=== PATIENT | male | born 1960 | race Caucasian/White ===

== ENCOUNTER → 2018-12-05 | Outpatient (CLI) | payer OTHER, SELFPAY ==
[2018-12-05 11:16] LABS: Anion Gap 5 (5-15); BUN 13 mg/dL (7-18); BUN/Creat Ratio 13.7 RATIO (10-20); Calcium,Total 8.9 mg/dL (8.5-10.1); Chloride 106 mmol/L (98-107); Creatinine, Serum 0.95 mg/dL (0.70-1.30); EST Glomerular Filtration Rate 87 mL/min (>60); Est Glom Filt Rate - Afr Amer 105 mL/min (>60); Glucose 101 mg/dL (74-106); Potassium 4.1 mmol/L (3.5-5.1); Sodium Level 138 mmol/L (136-145)
--- NOTE | 2018-12-05 13:18 | MRI_ITS ---
STUDY: MRI LEFT MIDFOOT REASON FOR EXAM: Male, 58 years old. Lump x10 years. TECHNIQUE: Standardized fat and water weighted pulse sequences were obtained in all 3 orthogonal planes. COMPARISON: None. FINDINGS: There is a 2.5 x 2.0 x 1.0 cm lobular enhancing intermediate T1 and diminished T2 signal mass of the skin on the plantar aspect. There is mild tibiotalar arthrosis with spurring and subchondral edema of the talar dome. There is os trigonum. Normal talonavicular articulation. Normal calcaneocuboid articulation. There is focal marrow edema of the cuboid, series 11 images 14 and 15. Normal navicular-cuneiform articulations. Normal intercuneiform articulations. Normal first tarsometatarsal articulation. Normal Lisfranc ligament. Normal second and third tarsometatarsal articulations. Normal cuboid fourth and cuboid fifth tarsometatarsal articulation. Normal visualized base of the first through fifth metatarsi. Normal tibialis anterior tendon. Normal extensor hallucis longus tendon. Normal extensor digitorum longus tendons. There is tendinosis of the peroneal brevis with flattening and longitudinal split tear, series 7 images 7 and 8. Normal intrinsic muscles of the mid foot region. Normal extensor digitorum brevis muscle. MRI/Lower Ext No Joint W/WO Cont IMPRESSION: Solid enhancing mass involving the skin on the plantar aspect. Tenosynovitis and partial split tear of the peroneal brevis. Bone bruise or stress injury of the cuboid. Electronically Signed: Stephen Kim MD at 16:25 EDT , Service support ,
== END | disposition home or self-care (01) ==
LOC: MRI 13:13
PROVIDERS: Referring Provider Podiatrist; Visit Provider Podiatrist
DX: Z01.818 Encounter for other preprocedural examination (principal); L98.9 Disorder of the skin and subcutaneous tissue, unspecified; M79.672 Pain in left foot; R22.42 Localized swelling, mass and lump, left lower limb
CPT/HCPCS: 73720; 80048; A9575

== ENCOUNTER → 2019-02-08 | Outpatient (CLI) | payer OTHER, SELFPAY ==
[2019-02-08 12:15] LABS: Absolute Lymphocyte Count 1.37 X10^3/ul (0.83-4.51); Absolute Neutrophil Count 2.7 X10^3/uL (2.0-7.7); Basophil# 0.01 X10^3/uL; Basophil% 0.2 % (0-1); Eosinophil# 0.26 X10^3/uL; Eosinophils% 5.4 % (0-5); Hematocrit 44.7 % (40-54); Hemoglobin 15.5 g/dl (13.0-16.5); Lymphocyte # 1.37 X10^3/ul (4.0); Lymphocyte % 28.5 % (19-41); Mean Corp Hgb Conc 34.7 g/gl (32-36); Mean Corpuscular Hgb 32.4 pg (27.0-32.0); Mean Corpuscular Volume 93.3 fL (80-94); Mean Platelet Vol. 9.4 fl (6.2-12.0); Monocyte# 0.48 X10^3/uL; Neutrophil # 2.67 X10^3/uL (2.7-7.7); Neutrophil % 55.5 % (47-70); Platelet Count 238 K/mm3 (150-450); RBC Distribution Width CV 12.4 % (11.6-14.6); Red Blood Count 4.79 M/mm3 (4.6-6.2); White Blood Count 4.8 K/mm3 (4.4-11.0)
[2019-02-08 12:26] LABS: AST(SGOT) 30 U/L (15-37); Alanine Aminotransfer ALT/SGPT 55 U/L (16-61); Albumin, Serum 3.8 g/dL (3.2-5.0); Alkaline Phosphatase 92 U/L (45-117); Anion Gap 7 (5-15); BUN 14 mg/dL (7-18); BUN/Creat Ratio 13.6 RATIO (10-20); Chloride 104 mmol/L (98-107); Creatinine, Serum 1.03 mg/dL (0.70-1.30); EST Glomerular Filtration Rate 79 mL/min (>60); Est Glom Filt Rate - Afr Amer 95 mL/min (>60); Globulin 3.8 g/dL (2.2-4.2); Glucose 96 mg/dL (74-106); Potassium 4.2 mmol/L (3.5-5.1); Protein, Total 7.6 g/dL (6.4-8.2); Sodium Level 138 mmol/L (136-145)
[2019-02-08 12:31] LABS: POSITIVE COUNT NO; POSITIVE DIFFERENTIAL NO; POSITIVE MORPHOLOGY NO
[2019-02-08 13:12] LABS: Erythrocyte Sedimentation Rate 4 mm/hr (0-20)
== END | disposition home or self-care (01) ==
LOC: BFHLAB 09:47
PROVIDERS: Family Provider Family Medicine; PCP Family Medicine; Visit Provider Family Medicine
DX: Z01.818 Encounter for other preprocedural examination (principal); I10 Essential (primary) hypertension
CPT/HCPCS: 36415; 80053; 85025; 85652

== ENCOUNTER 2019-02-16 06:01 | Day surgery (SDC) | payer OTHER, SELFPAY ==
[2019-02-16] VITALS (7 sets, daily range): BP systolic 128–176; BP diastolic 76–104; PULSE 65–75; RESP 16; TEMP 36.2–36.4; O2SAT 95–100; BMI 24.4
--- NOTE | 2019-02-16 | IMM_PTH ---
PATIENT: SHELBIE FERRO LOC: [facility] U#:[id number] AGE/SX: 58/M ROOM: RE02/16/[address]: Dr. Linh Butler DPM : 1960 BED: DIS: 02/16/2019 SPEC #: [id number] RECD: 02/19/19 11:10 STATUS: SCOTT REQ #: [id number] SHARLA: 02/16/19 00:[address]: Linh Butler DEPT: IMMUNOHISTOCHEMISTRY RECD BY: Hemalatha Alvarado ENTERED: 02/19/19 11:13 SP TYPE: IMMUNO OTHR DR: Dr. Norma Dominguez MD Tissues: Left foot Procedures: Synapto (add) RCC (add) SMA (add) NAPSIN A (add) CD45 (add) CD56 (add) CHROMO (add) CK20 (add) CK5-6 (add) CK7 (add) CK8 (add) DESMIN (add) HEP PAR (add) TTF1 (add) Vimentin (add) Pankeratin (initial) MELAN-A (add) P40 (add) PSAP (add) S-100 (add) PHYSICIAN & INSTITUTION [place] [id number] SPECIMEN INFORMATION: Tissue Source: Left foot soft tissue mass Clinical Info: Left foot soft tissue mass Specimen Number: [id number] CPT code: 85687, 05500 x19 METHODOLOGY: Deparaffinized sections of prefer/formalin-fixed tissue or PAP/DQ stained slides are incubated with monoclonal/polyclonal antibodies/oligonucleotide probes. Localization is made via biotin free immunoperoxidase method. Appropriate controls are performed and reacted as expected. Results on target cell population are indicated in the following table: RESULTS: ANTIBODY / CLONE RESULT AE1-3 (AE1/AE3/PCK26) positive CK7 (OV-TL12/30) positive CK8 (40hgsyU97) positive, focal CK20 (KS20.8) positive CD45 (RP2/18) negative Vimentin (V9) negative Actin (1A4) negative Desmin (CE-R-11) negative Melan A (A103) negative S-100 (4C4.9) negative CD56 (123C3.D5) negative Chromo (LK2H10) negative Synapto (polyclonal) negative TTF-1 (8G7G3/1) negative Napsin A (Rabbit Polyclonal) negative HepPar (OCh1E5) negative RCC (PN-15) negative PSAP (PASE/4LJ) negative CK5-6 (D5 & 1684) positive P40 (BC28) positive, weak These tests were developed and their performance characteristics determined by [facility]. They may not have been cleared or approved by the U.S. Food and Drug Administration. The FDA has determined that such clearance or approval is not necessary. 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 SJ:claire 03/15/19 This case is sent to [facility] for expert opinion and reviewed by Dr. Reilly and additionally also reviewed by Dr. Zaldivar from [facility] reference laboratory and above diagnosis is rendered. Complete report is viewable in patient's EMR. This case has been reviewed in consultation with Dr. Stewart who concurs with the above diagnosis.
--- NOTE | 2019-02-16 | MASS_PTH ---
PATIENT: SHELBIE FERRO [place] [facility] [place][id number] AGE/SX: 58/M ROOM: RE02/16/[address]: Dr. Linh Butler DPM : 1960 BED: DIS: 02/16/2019 SPEC #: [id number] RECD: 02/16/19 07:59 STATUS: SCOTT REQ #: [id number] SHARLA: 02/16/19 00:[address]: Linh Butler DEPT: SURGICAL PATHOLOGY RECD BY: Hemalatha Alvarado ENTERED: 02/16/19 09:35 SP TYPE: Mass OTHR DR: Dr. Norma Dominguez MD Tissues: Foot, NOS Procedures: Frozen Section (charge) Surgery Specimen Level IV HEADER OPERATION: Excision mass PRE-OP DIAGNOSIS: Soft tissue mass left foot; foot pain left foot TISSUE SUBMITTED: Left foot soft tissue mass, suture at 12 o'clock FROZEN SECTION DIAGNOSIS Left foot soft tissue mass: Infiltrative epithelial neoplasm. The findings may reflect a primary lesion vs metastasis. 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 See comment. SJ:claire 03/15/19 COMMENT Immunohistochemistry ([id number]) performed here and also at [facility] laboratory supports the above diagnosis. This case is sent to [facility] for expert opinion reviewed by Dr. Reilly and additionally also reviewed by Dr. Zaldivar from [facility] reference laboratory and above diagnosis is rendered. Complete report is viewable in PCI. This case is discussed with Dr. Butler on 02/20/19. Case has been reviewed in consultation with Dr. Stewart who concurs with the above diagnosis. IDC:AM MICROSCOPIC DESCRIPTION Slides are reviewed. GROSS DESCRIPTION Received fresh for frozen section labeled with the patient's name is a specimen designated left foot soft tissue mass. The specimen consists of a skin biopsy measuring 0.8 x 0.7 cm and biopsied to a depth of 1 cm. The skin surface is camara. A suture thread is present designating 12 o'clock. The 12 to 6 o'clock excisional margin is inked black and the 6 to 12 o'clock excisional margin is inked red. The specimen is bisected and one-half is submitted for frozen section. / CE:claire 02/16/19 TC:0 CPT: 21640, 05745
[2019-02-16] MEDS: Bupivacaine Mpf 0.5% 30 ML VIAL (07:48)
--- NOTE | 2019-02-16 08:42 | DCINST_ITS ---
Discharge Diet: No Restrictions Weight Bearing Status: Toe touch weight bearing Keep extremity elevated above heart level: Left Leg Call your doctor if your incision/area has: Continuous Slow Oozing, Sudden Increased Bleeding, Increased Pain/ Swelling, Increased Redness, Foul Smelling D ischarge, Swelling at the incision site Call your doctor if you observe: Fever of 101 or Higher, Calf discomfort, Uncontrolled pain Cleanse incision/area with: Keep Dressing Clean & Dry Allergies/Adverse Reactions: Allergies No Known Allergies Allergy (Verified 02/09/19 14:46) Medications to take at Discharge Loratadine [Claritin] 10 mg PO DAILY 02/09/19 Lisinopril [Zestril] 20 mg PO DAILY 02/12/19 Primary Care Physician: Norma Dominguez MD [Primary Care Provider] - Test Results: Test results from this visit will be discussed in further detail at your follow- up appointment, if applicable. Please Follow Up With: Linh Butler DPM When: 1 week [facility] - [phone] Proposed Discharge Date: 02/16/19
--- NOTE | 2019-02-16 08:43 | OP.PCM_ITS ---
Problem List (1) Soft tissue mass Status: Chronic (2) Neoplasm Status: Suspected Report of Operation Date of Procedure: 02/16/19 Pre-Operative Diagnosis: right foot soft tissue mass / skin lesion Post-Operative Diagnosis: right foot soft tissue mass / skin lesion. epithelial neoplasm (primary versus metatstatic lesion) right foot Surgery/Procedure Performed:: incisional biopsy right foot Description of Surgical Findings:: Hemostasis: Controlled, no tourniquet utilized Materials: None Findings: Pathology: fresh frozen sample evaluation included infiltrative epithelial neoplasm. Clinical / surgical: 2.7 x 2.2 x 0.8 cm solid lesion plantar left foot. Upon incisional biopsy, there is no purulence, necrosis, drainage. The base of the l esion appears to be approximately 2 cm in length. There is capillary formation in the plantar aspect with no distinct ulceration or crusting. Complications: None The patient tolerated the procedure and anesthesia well. He was transferred to the PACU with vital signs stable and vascular status intact to the left lower extremity. There is concern of primary neoplasm versus metastatic lesion. An oncology referral is recommended at this time in which additional surgical oncology referral may be implemented after further work-up. He will be discharged home upon continued stability. Postoperative orders were entered electronically. loan reviewer: none - Jewelry Finisher: Ludin Jiménez PGY2. Surgeon: Linh Butler DPM Type of Anesthesia:: Local MAC - Preoperative: 8 cc of 1: 1 mixture of 1% lidocaine plain and 0.5% Marcaine plain administered subdermal to lesion site of left foot Specimen's removed: Fresh frozen sample /incisional biopsy left foot Estimated Blood Loss (mL): 5mL Description of Procedure: Indications: This 58-year-old male with significant past medical history of hypertension, hypercholesteremia, and history of gout complains of a lesion to the bottom of his left foot with an onset of 2005. He denies any known trauma or other lesions. He denies drainage. He denies recent increase in size, history of rapid growth or rest pain at the lesion site. He does report pain to the foot while walking on this large lesion. He has tried to treat this is a wart at home with tape application and various acid wart remover medications. His girlfriend reports he had a biopsy performed at an outside facility however does not recall the location. Clinically, there is a 2.7 x 2.2 x 0.8 cm solid lesion plantar lateral left foot distal to the heel pad. The base of the lesion appears to be approximately 2 cm in length and this is firm to touch. There is capillary formation in the plantar aspect with no distinct ulceration or crusting. There is no distinct skin peeling. His neurovascular status is intact and he has nonpalpable popliteal lymph nodes. X-rays did not demonstrate tissue calcification in this area. MRI of the foot demonstrated a solid enhancing lobular skin lesion. The enhancement was noted in T1 and diminished in T2. On the MRI, there did not appear to be invasion into the deeper soft tissue muscle belly, joint, or bone. There is also no adjacent inflammatory reaction noted. Cuboid edema is noted. The preoperative indication, planned procedure, possible benefits, risks, comp occasions, anticipated healing time and were discussed in detail the patient. He understands elects to proceed with surgery at this time. The patient understands risks and complications include but not limited to the following: pain, swelling, scarring, need for further surgery, over under correction, further lesion or cancer work-up / referral pending fresh frozen results, allergic reaction, blood clot, loss of limb, function, life. No guarantees were made. Informed surgical consent and limb were signed. Answered all his questions. The preoperative clearance and history and physical including diagnostic data was reviewed in detail without gross abnormalities. Procedure in detail: The patient was transported to the operating room via cart and placed on the operating table in supine position. Final verification of patient, surgery, limb designation was performed via the timeout procedure. A well-padded pneumat ic left ankle tourniquet was placed however this was not utilized. Preoperative local anesthetic was administered by the podiatry team. MAC anesthesia was initially by the anesthesia team. The left lower extremity was prepped and draped in the usual aseptic manner. Attention was first directed to the plantar left foot and a 15 blade scalpel was used to incise approximately 5 mm diameter epidermal and dermal biopsy sample. This was sent for fresh frozen evaluation promptly. The case was discussed via phone with the pathologist in which an infiltrative epithelial neoplasm was suspected. This may be a primary lesion or a metastatic lesion. The case was stopped at this time and I decided not to proceed forward with the bilobed excisional flap closure. Adaptic, gauze, Kerlix and Abraham wrap were applied. Hemostasis was controlled with pressure and no additional electrocauterization was necessary. He will be referred to oncology for further imaging and work-up in which a surgical oncology referral may also be deemed necessary pending additional work-up. After procedure: The patient tolerated the procedure anesthesia well. He was transferred to the PACU vital signs stable and vascular status intact to the left foot. He will be discharged home upon continued stability. He is advised to keep this dressing clean, dry, and intact until follow-up in clinic next week. He was advised to ice and elevate for pain and inflammation management. He was already provided with a pain medication prescription for use only if needed only in the immediate postoperative setting. He was advised on safe and proper use. He was advised to place weight only on the forefoot and to keep pressure off of the recent biopsy site. Postoperative orders were entered electronically. This case was discussed in the postoperative setting with Dr. Calderón and an oncology referral was placed. Linh Butler DPM, [facility] - Complications none - Admit VTE Documentation VTE Present on Admission: No VTE Mechan Device Prophylaxis: SCD's VTE Pharm Prophylaxis ordered?: No Reason prophylaxis not ordered:: Treatment Not Indicated
== END 2019-02-16 09:19 | disposition home or self-care (01) ==
LOC: SDC 06:02 → AC 06:04
PROVIDERS: Family Provider Family Medicine; PCP Family Medicine; Referring Provider Podiatrist; Visit Provider Podiatrist
PROC: (CPT 11106; principal; 2019-02-16 07:15)
DX: D23.71 Other benign neoplasm of skin of right lower limb, including hip (principal); I10 Essential (primary) hypertension; J30.2 Other seasonal allergic rhinitis; Z87.891 Personal history of nicotine dependence; Z79.899 Other long term (current) drug therapy
CPT/HCPCS: 11106; 88305; 88307; 88331; 88341; 88342; J7120; J2405

== ENCOUNTER → 2019-03-02 | Outpatient (CLI) | payer OTHER, SELFPAY ==
[2019-02-21 15:47] VITALS: BMI 24.0
--- NOTE | 2019-03-02 13:52 | CT_ITS ---
STUDY: CT CHEST WITH CONTRAST REASON FOR EXAM: Male, 58 years old. Soft tissue mass on the left foot. RADIATION DOSAGE (If Supplied By Facility): CTDIvol = ( 10.97 ) mGy, DLP = ( 491.18 ) mGycm TECHNIQUE: Transaxial imaging was performed following intravenous administration of 100 IV Isovue 300. Multiplanar coronal and sagittal images were reformatted. Individualized dose optimization techniques were used for this CT. COMPARISON: CT of the abdomen and pelvis, March 02, 2019. FINDINGS: There is an azygos lobe. The lungs are well expanded and free of mass or infiltrate. There is no demonstrated pleural abnormality. Normal heart and pericardium. Normal mediastinum. Normal hilar regions. Normal enhanced pulmonary arteries. Normal aorta arch and descending thoracic aorta. Normal osseous structures. There is no demonstrated abnormality of the visualized upper abdomen. CT/Chest WITH Contrast IMPRESSION: Normal enhanced CT Chest examination. Electronically Signed: Aneudy Galarza DO at 21:24 EDT Tel [phone], Service support ,
--- NOTE | 2019-03-02 13:52 | CT_ITS ---
STUDY: CT ABDOMEN AND PELVIS WITH CONTRAST REASON FOR EXAM: Male, 58 years old. Soft tissue mass on the left foot. RADIATION DOSAGE (If Supplied By Facility): CTDIvol = ( 10.97 ) mGy, DLP = ( 491.18 ) mGycm TECHNIQUE: Transaxial images were obtained from the dome of the diaphragm to the symphysis pubis with oral contrast. 100 IV Isovue 300 was administered. Sagittal and coronal images were reconstructed. Individualized dose optimization techniques were used for this CT. COMPARISON: AP of the chest, March 02, 2018. FINDINGS: The visualized lung bases are unremarkable. The visualized portions of the heart are within normal limits. Normal liver. Normal gallbladder and extrahepatic biliary system. Normal spleen. Normal pancreas. Normal bilateral adrenal glands. Normal right kidney. Normal left kidney. Normal bilateral ureters. Normal visualized stomach. Normal small intestine. Normal colon. The appendix is visualized and appears normal. Minimal atherosclerotic changes of the abdominal aorta without aneurysm or dissection. Normal inferior vena cava. Normal retroperitoneum. There is mild circumferential wall thickening of the urinary bladder. There are no filling defects. The prostate is mildly enlarged and invaginates into the bladder floor. There are phleboliths in the pelvis without lymphadenopathy. No free air or free fluid is seen within the peritoneal cavity. There are small bilateral inguinal hernias of omental fat. The abdominal wall is otherwise unremarkable. Are degenerative changes of the lumbar spine CT/Abdomen/Pelvis WITH Contrast IMPRESSION: 1. Enlarged prostate. Question mild bladder outlet obstruction. 2. Atherosclerotic changes of the aorta. 3. Degenerative changes of the lumbar spine. Electronically Signed: Aneudy Galarza DO at 20:33 EDT Tel [phone], Service support ,
== END | disposition home or self-care (01) ==
LOC: CT 13:50
PROVIDERS: Family Provider Family Medicine; PCP Family Medicine; Referring Provider Internal Medicine Medical Oncology; Visit Provider Internal Medicine Medical Oncology
DX: M79.89 Other specified soft tissue disorders (principal)
CPT/HCPCS: 71260; 74177; Q9967

== ENCOUNTER 2019-04-13 23:49 | Emergency (ER) | payer OTHER, SELFPAY ==
[2019-03-20 15:20] VITALS: BMI 23.8
[2019-04-13 23:50] VITALS: BP 168/90; PULSE 94; RESP 16; TEMP 36.4; O2SAT 97; BMI 24.0
--- NOTE | 2019-04-14 00:09 | ED.DCSUM_ITS ---
History of Present Illness Chief Complaint: ETOH Intox Detail of Chief Complaint: EtOH intoxication, syncope Informant: Patient, Family Narrative: Patient presents via EMS. Patient reported he has been drinking a lot of alcohol tonight. He went unresponsive for approximately 1-1/2 minutes and EMS was called. Daughter states patient woke up shortly before EMS arrived. She thought that he had stopped breathing. Patient did have left foot surgery last week. He has not been taking pain medication. He has no complaints at this time, but keeps saying goodbye and just wants to go to sleep. Past Medical History - Allergies and Home Meds Allergies/Adverse Reactions: Allergies No Known Allergies Allergy (Verified 03/20/19 15:19) Primary Care Physician: Norma Dominguez MD [Primary Care Provider] - Prior records reviewed: Yes Past Medical History: - - Reviewed Lives: With Family Smoking Status: Never smoker Review of Systems General: Denies: Chills, Fever Cardiovascular: Denies: Chest pain Respiratory: Denies: Dyspnea Gastrointestinal: Denies: Abdominal pain, Nausea, Vomiting Musculoskeletal: Reports: Arthralgias - Foot pain status post surgery Skin: Reports: Wounds - Foot wound status post surgery Neurological: Denies: Headache Endocrine: Denies: Polyuria, Polydipsia Hematologic: Denies: Easy bruising Allergy: Denies: Uticaria Physical Exam Vital Signs/Narrative: Vital Signs Temp Pulse Resp BP Pulse Ox 04/13/19 23:50 97.5 F L 94 16 168/90 H 97 General: Well nourished Head: Normocephalic ENT: Moist mucous membranes Neck: Supple Cardiovascular: Regular rate, Regular rhythm Respiratory: No distress, CTA bilaterally Abdomen: Soft, Nontender, Normal bowel sounds Extremities: - - Dressing in place to left foot. No calf tenderness or edema. Neurological: Alert Psychological: - - Flat affect. Diagnostic/Tx/Re-eval Laboratory Results 04/14/19 04/14/19 04/14/19 00:40 00:40 00:40 WBC 6.7 RBC 4.79 Hgb 15.8 Hct 44.3 MCV 92.5 MCH 33.0 H MCHC 35.7 RDW Std Deviation 40.0 RDW Coeff of Lauren 11.8 Plt Count 233 MPV 8.8 Immature Gran % (Auto) 1.000 H Neut % (Auto) 55.3 Lymph % (Auto) 27.4 [place] % (Auto) 13.7 H Eos % (Auto) 2.2 Baso % (Auto) 0.4 Absolute Neuts (auto) 3.7 Absolute Lymphs (auto) 1.84 Nucleated RBC % 0 Sodium 140 Potassium 3.7 Chloride 105 Carbon Dioxide 27.0 Anion Gap 8 BUN 18 Creatinine 1.08 Estim Creat Clear Calc 72.13 Est GFR (MDRD) Af Amer 90 Est GFR (MDRD) Non-Af 75 BUN/Creatinine Ratio 16.7 Glucose 129 H Calcium 8.9 Total Bilirubin 0.60 Direct Bilirubin 0.15 AST 39 H ALT 56 Alkaline Phosphatase 117 Troponin I < 0.015 Total Protein 8.1 Albumin 3.9 Globulin 4.2 Ethyl Alcohol 431.0 H* - EKG Initial EKG Interpretation: Sinus Rhythm - Sinus at [address] change. - Medical Decision Making Patient was observed on equipment monitor phototypesetting. After 5 hours patient is awake and alert. He is ambulating in the emergency room. He does not remember details of what happened last evening, but he is very remorseful and tearful. He is states he is embarrassed and so sorry for any problems he may have caused. He has a sober ride that he can call to come pick him up. He was asked specifically if he is drinking tonight was any attempt to hurt himself and he denies this. ED Disposition - Plan for ED Patient: Disposition: Home or Assisted Living Diagnosis: Alcohol intoxication, Syncope Instructions: Alcohol Intoxication, SYNCOPE, Unk Cause Referrals: Norma Dominguez MD [Primary Care Provider] -
--- NOTE | 2019-04-14 00:19 | EKG12_ITS ---
Test Reason : Blood Pressure : / mmHG Vent. Rate : 086 BPM Atrial Rate : 086 BPM P-R Int : 136 ms QRS Dur : 090 ms QT Int : 374 ms P-R-T Axes : 081 062 065 degrees QTc Int : 447 ms Normal sinus rhythm Normal ECG Confirmed by CEZAR GOLDSTEIN, BRIAN ([id number]), purchasing expeditor JAYLENE VALDEZ ([id number]) on 04/16/2019 11:54:17 AM Referred By: SHASHANK Confirmed By:BRIAN ROBB MD
[2019-04-14] MEDS: 0.9% Normal Saline 1,000 ML 150 ML IV (00:36)
[2019-04-14 00:41] VITALS: BP 174/94; PULSE 113; RESP 24; TEMP 36.4; O2SAT 97
[2019-04-14 00:54] LABS: Absolute Lymphocyte Count 1.84 X10^3/uL (0.83-4.51); Absolute Neutrophil Count 3.7 X10^3/uL (2.0-7.7); Basophil# 0.03 X10^3/uL; Basophil% 0.4 % (0-1); Eosinophil# 0.15 X10^3/uL; Eosinophils% 2.2 % (0-5); Hematocrit 44.3 % (40-54); Hemoglobin 15.8 g/dL (13.0-16.5); Lymphocyte # 1.84 X10^3/ul (4.0); Lymphocyte % 27.4 % (19-41); Mean Corp Hgb Conc 35.7 g/dL (32-36); Mean Corpuscular Volume 92.5 fL (80-94); Mean Platelet Vol. 8.8 fl (6.2-12.0); Monocyte# 0.92 X10^3/uL; Monocyte% 13.7 % (0-10); NRBC Flagged by Analyzer 0 % (0-5); Neutrophil % 55.3 % (47-70); Platelet Count 233 K/mm3 (150-450); RBC Distribution Width CV 11.8 % (11.6-14.6); Red Blood Count 4.79 M/mm3 (4.6-6.2); White Blood Count 6.7 K/mm3 (4.4-11.0)
[2019-04-14 01:13] LABS: AST(SGOT) 39 U/L (15-37); Alanine Aminotransfer ALT/SGPT 56 U/L (16-61); Albumin, Serum 3.9 g/dL (3.2-5.0); Alkaline Phosphatase 117 U/L (45-117); Anion Gap 8 (5-15); BUN 18 mg/dL (7-18); BUN/Creat Ratio 16.7 RATIO (10-20); Bilirubin, Direct 0.15 mg/dL (0.00-0.30); Calcium,Total 8.9 mg/dL (8.5-10.1); Chloride 105 mmol/L (98-107); Creatinine, Serum 1.08 mg/dL (0.70-1.30); EST Glomerular Filtration Rate 75 mL/min (>60); Est Glom Filt Rate - Afr Amer 90 mL/min (>60); Estimated Creatinine Clearance 72.13 ml/min; Globulin 4.2 g/dL (2.2-4.2); Glucose 129 mg/dL (74-106); Potassium 3.7 mmol/L (3.5-5.1); Protein, Total 8.1 g/dL (6.4-8.2); Sodium Level 140 mmol/L (136-145)
--- NOTE | 2019-04-14 02:17 | ED.RN ---
ALCOHOL WAS [address] ZURITA MADE AWARE.
--- NOTE | 2019-04-14 02:30 | ED.RN ---
SEPSIS SCREEN COMPLETE PER DR. ZURITA.
[2019-04-14 02:31] VITALS: BP 141/72; PULSE 74; RESP 15; O2SAT 93
[2019-04-14 03:03] VITALS: BP 168/90; PULSE 105; RESP 16; O2SAT 97
[2019-04-14 04:56] VITALS: BP 157/89; PULSE 105; RESP 16; O2SAT 96
== END 2019-04-14 08:42 | disposition home or self-care (01) ==
PROVIDERS: Emergency Provider Emergency Medicine; Family Provider Family Medicine; PCP Family Medicine
DX: F10.129 Alcohol abuse with intoxication, unspecified (principal); R55 Syncope and collapse; Y90.8 Blood alcohol level of 240 mg/100 ml or more
CPT/HCPCS: 80048; 80076; 80320; 84484; 85025; 93005; 96360; 96361; 99285; J7030; A4216; G0480

== ENCOUNTER 2020-03-13 13:41 | Emergency (ER) | payer OTHER, SELFPAY ==
[2019-04-30 15:40] VITALS: BMI 23.7
[2020-03-13 13:42] VITALS: BP 153/100; PULSE 83; RESP 16; TEMP 37.1; O2SAT 98; BMI 24.3
--- NOTE | 2020-03-13 13:58 | ED.DCSUM_ITS ---
History of Present Illness Chief Complaint: Abd Pain Informant: Patient Narrative: Patient states that last week he was having fevers up to 104 and some abdominal pain. He has not had a formed bowel movement in 12 days. He was tested for COVID on last Tuesday and results returned this week and were negative. His abdominal pain got better and he was began to take some laxatives as he had a abdominal x-ray at urgent care was told he had some blockage.. He has had no more fevers and no more abdominal pain. He came today to the hospital for a scheduled CT of the chest and abdomen and pelvis for cancer surveillance. This was concerning for ruptured appendicitis. Past Medical History - Allergies and Home Meds Allergies/Adverse Reactions: Allergies No Known Allergies Allergy (Verified 03/13/20 13:42) Primary Care Physician: Arielle Harris MD [STAFF PHYSICIAN] - (call today to arrange follow up) Smoking Status: Never smoker Review of Systems General: Reports: Fever. Denies: Chills, Sweats Eyes: Denies: Visual changes - bilaterally, Diplopia ENT: Denies: Rhinorrhea, Sore throat Cardiovascular: Denies: Chest pain, Palpitations Respiratory: Denies: Dyspnea, Cough, Dyspnea on exertion Gastrointestinal: Reports: Abdominal pain, Diarrhea. Denies: Nausea, Vomiting, Melena, Hematochezia Genitourinary: Denies: Dysuria, Hematuria, Frequency Musculoskeletal: Denies: Back pain, Extremity Pain Skin: Denies: Rash, Wounds Neurological: Denies: Headache, Weakness, Numbness Physical Exam Vital Signs/Narrative: Vital Signs Temp Pulse Resp BP Pulse Ox 03/13/20 13:42 98.7 F 83 16 153/100 H 98 Inital Vital Signs reviewed: Yes General: Well nourished, Well developed, No Acute Distress Head: Normocephalic, Atraumatic Eyes: Perrl, EOMI ENT: Moist mucous membranes, No rhinorrhea Neck: Supple, Nontender Cardiovascular: Regular rate, Regular rhythm, No murmurs Respiratory: No distress, CTA bilaterally, Chest nontender Abdomen: Soft, Nontender, Nondistended, Normal bowel sounds Back: Nontender, Normal Inspection Extremities: Nontender, No edema Skin: Normal color, No rash Neurological: Alert, Oriented x3, Cranial nerves II-XII grossly intact, Normal Strength, Normal Sensation Psychological: Normal affect, Normal Mood Diagnostic/Tx/Re-eval CT/Abdomen/Pelvis W IV Cont ONLY IMPRESSION: There is an acute inflammatory process in the right lower quadrant. I suspect this likely represents an acute appendicitis with associated inflammatory involvement of the cecum and terminal ileum. The abnormal appendix is best seen on axial image 80, and coronal reconstructed image 38. No perforation or abscess noted Scattered sigmoid diverticulosis No suspicious solid organ abnormality, there is a bowel loop interposed between the anterior edge of the liver and the peritoneal surface. Electronically Signed: Romario Saleh MD at 14:02 EDT , Service support , Laboratory Last Values WBC 7.5 K/mm3 (4.4-11.0) 03/13/20 14:40 Corrected WBC Cancelled 03/13/20 14:00 RBC 3.94 M/mm3 (4.6-6.2) L 03/13/20 14:40 Hgb 12.7 g/dL (13.0-16.5) L 03/13/20 14:40 Hct 36.9 % (40-54) L 03/13/20 14:40 MCV 93.7 fL (80-94) 03/13/20 14:40 MCH 32.2 pg (27.0-32.0) H 03/13/20 14:40 MCHC 34.4 g/dL (32-36) 03/13/20 14:40 RDW Std Deviation 40.3 fl (35.1-43.9) 03/13/20 14:40 RDW Coeff of Lauren 11.8 % (11.6-14.6) 03/13/20 14:40 Plt Count 520 K/mm3 (150-450) H 03/13/20 14:40 MPV 8.8 fl (6.2-12.0) 03/13/20 14:40 Immature Gran % (Auto) Cancelled 03/13/20 14:00 Neut % (Auto) Not Reportable 03/13/20 14:40 Lymph % (Auto) Cancelled 03/13/20 14:00 Banner % (Auto) Cancelled 03/13/20 14:00 Eos % (Auto) Cancelled 03/13/20 14:00 Baso % (Auto) Cancelled 03/13/20 14:00 Absolute Neuts (auto) 5.2 X10^3/uL (2.0-7.7) 03/13/20 14:40 Absolute Lymphs (auto) 1.27 X10^3/uL (0.83-4.51) 03/13/20 14:40 Total Counted 100 (MANUAL DIFF) 03/13/20 14:40 Neutrophils % (Manual) 69 % (47-70) 03/13/20 14:40 Band Neutrophils % Cancelled 03/13/20 14:00 Lymphocytes % (Manual) 17 % (19-41) L 03/13/20 14:40 Monocytes % (Manual) 7 % (0-10) 03/13/20 14:40 Eosinophils % (Manual) 3 % (0-5) 03/13/20 14:40 Basophils % (Manual) 1 % (0-1) 03/13/20 14:40 Metamyelocytes % 2 % (0-1) H 03/13/20 14:40 Myelocytes % Cancelled 03/13/20 14:00 Promyelocytes % 1 (0-0) H 03/13/20 14:40 Blast Cells % Cancelled 03/13/20 14:00 Plasma Cell % (Manual) Cancelled 03/13/20 14:00 Other Cells % Cancelled 03/13/20 14:00 Nucleated RBC % Cancelled 03/13/20 14:00 Nucleated RBCs/100 WBC Cancelled 03/13/20 14:00 Differential Comment Cancelled 03/13/20 14:00 Diff Path Review May foll 03/13/20 14:40 Hypersegmented Neuts Cancelled 03/13/20 14:00 Atypical Lymphocytes Cancelled 03/13/20 14:00 Reactive Lymphocytes Cancelled 03/13/20 14:00 Smudge Cells Cancelled 03/13/20 14:00 Toxic Granulation Cancelled 03/13/20 14:00 Toxic Vacuolation Cancelled 03/13/20 14:00 Dohle Bodies Cancelled 03/13/20 14:00 [place] Rods Cancelled 03/13/20 14:00 Platelet Estimate Cancelled 03/13/20 14:00 Plt Morphology Comment Cancelled 03/13/20 14:00 RBC Morphology Cancelled 03/13/20 14:00 RBC Morphology Cancelled 03/13/20 14:00 Polychromasia Cancelled 03/13/20 14:00 Hypochromasia Cancelled 03/13/20 14:00 Poikilocytosis Cancelled 03/13/20 14:00 Basophilic Stippling Cancelled 03/13/20 14:00 Anisocytosis Cancelled 03/13/20 14:00 Microcytosis Cancelled 03/13/20 14:00 Macrocytosis Cancelled 03/13/20 14:00 Spherocytes Cancelled 03/13/20 14:00 Sickle Cells Cancelled 03/13/20 14:00 Target Cells Cancelled 03/13/20 14:00 Tear Drop Cells Cancelled 03/13/20 14:00 Ovalocytes Cancelled 03/13/20 14:00 Stomatocytes Cancelled 03/13/20 14:00 [place] Bodies Cancelled 03/13/20 14:00 Zee Cells Cancelled 03/13/20 14:00 Bite Cells Cancelled 03/13/20 14:00 Crenated Cell Cancelled 03/13/20 14:00 Acanthocytes (Spur) Cancelled 03/13/20 14:00 Rouleaux Cancelled 03/13/20 14:00 Schistocytes Cancelled 03/13/20 14:00 Sodium 135 mmol/L (136-145) L 03/13/20 14:40 Potassium 4.3 mmol/L (3.5-5.1) 03/13/20 14:40 Chloride 103 mmol/L (98-107) 03/13/20 14:40 Carbon Dioxide 28.0 mmol/L (21.0-32.0) 03/13/20 14:40 Anion Gap 4 (5-15) L 03/13/20 14:40 BUN 20 mg/dL (7-18) H 03/13/20 14:40 Creatinine 0.96 mg/dL (0.70-1.30) 03/13/20 14:40 Estim Creat Clear Calc 81.15 ml/min 03/13/20 14:40 Est GFR (MDRD) Af Amer 103 mL/min (>60) 03/13/20 14:40 Est GFR (MDRD) Non-Af 85 mL/min (>60) 03/13/20 14:40 BUN/Creatinine Ratio 20.8 RATIO (10-20) H 03/13/20 14:40 Glucose 111 mg/dL (74-106) H 03/13/20 14:40 Calcium 8.8 mg/dL (8.5-10.1) 03/13/20 14:40 Total Bilirubin 0.30 mg/dL (0.20-1.00) 03/13/20 14:40 AST 23 U/L (15-37) 03/13/20 14:40 ALT 53 U/L (16-61) 03/13/20 14:40 Alkaline Phosphatase 160 U/L (45-117) H 03/13/20 14:40 Total Protein 7.2 g/dL (6.4-8.2) 03/13/20 14:40 Albumin 3.0 g/dL (3.2-5.0) L 03/13/20 14:40 Globulin 4.2 g/dL (2.2-4.2) 03/13/20 14:40 Albumin/Globulin Ratio 0.7 RATIO (0.9-2.4) L 03/13/20 14:40 - Medical Decision Making Patient has no pain upon palpation of the abdomen on multiple examinations. He has no fever. His white count is normal. The CT was reviewed with surgery.-His exam and his course is most likely a colitis. We will treat him with Augmentin and have him follow-up in the office. Patient is very comfortable with this plan. ED Disposition - Plan for ED Patient: Disposition: Home or Assisted Living Diagnosis: Acute colitis Prescriptions: Amox/Clavulanate Tablet [Augmentin Tablet] 875 mg PO Q12H #20 tab Prescription Printed Referrals: Arielle Harris MD [STAFF PHYSICIAN] - (call today to arrange follow up)
[2020-03-13 14:52] LABS: Hematocrit 36.9 % (40-54); Hemoglobin 12.7 g/dL (13.0-16.5); Mean Corp Hgb Conc 34.4 g/dL (32-36); Mean Corpuscular Hgb 32.2 pg (27.0-32.0); Mean Corpuscular Volume 93.7 fL (80-94); Mean Platelet Vol. 8.8 fl (6.2-12.0); POSITIVE COUNT YES; POSITIVE MORPHOLOGY YES; Platelet Count 520 K/mm3 (150-450); RBC Distribution Width CV 11.8 % (11.6-14.6); RBC Distribution Width SD 40.3 fl (35.1-43.9); Red Blood Count 3.94 M/mm3 (4.6-6.2); White Blood Count 7.5 K/mm3 (4.4-11.0)
[2020-03-13 14:59] LABS: Differential Indicated MANUAL DIFF
[2020-03-13 15:09] LABS: ALB/GLOB Ratio 0.7 RATIO (0.9-2.4); AST(SGOT) 23 U/L (15-37); Alanine Aminotransfer ALT/SGPT 53 U/L (16-61); Alkaline Phosphatase 160 U/L (45-117); Anion Gap 4 (5-15); BUN 20 mg/dL (7-18); BUN/Creat Ratio 20.8 RATIO (10-20); Calcium,Total 8.8 mg/dL (8.5-10.1); Chloride 103 mmol/L (98-107); Creatinine, Serum 0.96 mg/dL (0.70-1.30); EST Glomerular Filtration Rate 85 mL/min (>60); Est Glom Filt Rate - Afr Amer 103 mL/min (>60); Estimated Creatinine Clearance 81.15 ml/min; Globulin 4.2 g/dL (2.2-4.2); Glucose 111 mg/dL (74-106); Potassium 4.3 mmol/L (3.5-5.1); Protein, Total 7.2 g/dL (6.4-8.2); Sodium Level 135 mmol/L (136-145)
[2020-03-13 15:13] LABS: Basophil 1 % (0-1); Eosinophil 3 % (0-5); Lymphocyte 17 % (19-41); Metamyelocyte 2 % (0-1); Monocyte 7 % (0-10); Neutrophil-Segmented 69 % (47-70); Promyelocyte 1 (0-0); Total Cells Counted 100 (MANUAL DIFF)
[2020-03-13 15:15] LABS: Absolute Lymphocyte Count 1.27 X10^3/uL (0.83-4.51); Absolute Neutrophil Count 5.2 X10^3/uL (2.0-7.7)
[2020-03-13 15:32] VITALS: BP 125/73; PULSE 76; RESP 18; TEMP 36.8; O2SAT 96
[2020-03-14 12:11] LABS: Pathologist Review Reviewed
== END 2020-03-13 15:41 | disposition home or self-care (01) ==
PROVIDERS: Emergency Provider Emergency Medicine; PCP Family Medicine
DX: K52.9 Noninfective gastroenteritis and colitis, unspecified (principal)
CPT/HCPCS: 80053; 85025; 96365; 99284; J7040; A4216

== ENCOUNTER → 2020-03-13 | Outpatient (CLI) | payer OTHER, SELFPAY ==
[2019-04-30 15:40] VITALS: BMI 23.7
--- NOTE | 2020-03-13 12:57 | CT_ITS ---
STUDY: CT CHEST WITH CONTRAST REASON FOR EXAM: Male, 59 years old. 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 Multiplanar coronal and sagittal images were reformatted. Individualized dose optimization techniques were used for this CT. COMPARISON: 03/02/2019 FINDINGS: Once again noted is an azygos fissure in the right hemithorax. The lungs are normal. There is no demonstrated pleural abnormality. Normal heart and pericardium. Normal mediastinum. Normal hilar regions. Normal enhanced pulmonary arteries. Normal aorta arch and descending thoracic aorta. Normal osseous structures. There is no demonstrated abnormality of the visualized upper abdomen. CT/Chest WITH Contrast IMPRESSION: Normal enhanced CT Chest examination. No interval change Electronically Signed: Romario Saleh MD at 13:55 EDT , Service support ,
--- NOTE | 2020-03-13 12:57 | CT_ITS ---
STUDY: CT ABDOMEN AND PELVIS WITHOUT CONTRAST REASON FOR EXAM: Male, 59 years old. 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 Sagittal and coronal images were reconstructed. Individualized dose optimization techniques were used for this CT. COMPARISON: None. FINDINGS: The visualized lung bases are unremarkable. The visualized portions of the heart are within normal limits. Normal liver. Incidental note is made of a loop of colon interposed between the anterior edge of the liver in the peritoneal surface which can cause pain in the right clinical setting. Normal gallbladder and extrahepatic biliary system. Normal spleen. Normal pancreas. Normal bilateral adrenal glands. Normal right kidney. Normal left kidney. Normal visualized stomach. Nondistended fluid-filled small bowel loops are noted consistent with ileus. In the right lower quadrant, there is an acute inflammatory process which I suspect is related to an inflamed appendix best seen on axial image 80. The appendix is abnormally thickened and mildly fluid distended with significant periappendiceal inflammatory changes. However, there is also thickening of the terminal ileum and proximal cecum and findings could be related to a focal colitis in this area as well. There is no perforation or abscess or associated adenopathy. There are a few scattered colonic diverticula noted. Normal abdominal aorta. Normal inferior vena cava. Normal retroperitoneum. There is circumferential thickening of the bladder wall. There are prostatic calcifications. Normal abdominal wall. Normal osseous structures. CT/Abdomen/Pelvis W IV Cont ONLY IMPRESSION: There is an acute inflammatory process in the right lower quadrant. I suspect this likely represents an acute appendicitis with associated inflammatory involvement of the cecum and terminal ileum. The abnormal appendix is best seen on axial image 80, and coronal reconstructed image 38. No perforation or abscess noted Scattered sigmoid diverticulosis No suspicious solid organ abnormality, there is a bowel loop interposed between the anterior edge of the liver and the peritoneal surface. Electronically Signed: Romario Saleh MD at 14:02 EDT , Service support ,
[2020-03-13 13:21] LABS: CREATININE FINGERSTICK 0.8 mg/dL (0.70-1.30); EGFR FINGERSTICK > 60.0000 mL/min (>60)
== END | disposition home or self-care (01) ==
LOC: CT 12:57
PROVIDERS: PCP Family Medicine; Referring Provider Internal Medicine Medical Oncology; Visit Provider Internal Medicine Medical Oncology
DX: C44.99 Other specified malignant neoplasm of skin, unspecified (principal)
CPT/HCPCS: 71260; 74177; Q9967

== ENCOUNTER → 2021-03-25 15:45 | Outpatient (CLI) | payer OTHER, SELFPAY ==
[2021-01-13 10:57] VITALS: BMI 24.3
--- NOTE | 2021-03-25 15:51 | CT_ITS ---
STUDY: CT CHEST, ABDOMEN T PELVIS WITH CONTRAST REASON FOR EXAM: Male, 61 years old. MONITORING CANCER RADIATION DOSAGE (If Supplied By Facility): CTDIvol = ( 12.68 ) mGy, DLP = ( 1146.33 ) mGycm TECHNIQUE: Transaxial imaging was performed following intravenous administration of Oral and amp; IV Readi-CAT and amp; 100mL Isovue-300. Individualized dose optimization techniques were used for this CT. COMPARISON: 03/13/2020 FINDINGS: CHEST The lungs are normal. There is no demonstrated pleural abnormality. Azygos lobe which is a normal variant. Normal heart and pericardium. Normal mediastinum. Normal hilar regions. Normal unenhanced pulmonary arteries. Normal aorta arch and descending thoracic aorta. Normal osseous structures. There is no demonstrated abnormality of the visualized upper abdomen. ABDOMEN The visualized lung bases are unremarkable. The visualized portions of the heart are within normal limits. Normal liver. Normal gallbladder and extrahepatic biliary system. Normal spleen. Normal pancreas. Normal bilateral adrenal glands. Normal right kidney. Normal left kidney. Normal visualized stomach. Normal small intestine. Normal colon. The appendix is visualized and appears normal. Normal abdominal aorta. Normal inferior vena cava. Normal retroperitoneum. Normal abdominal wall. Normal osseous structures. PELVIS Normal urinary bladder. Normal visualized small intestine. There are multiple colonic diverticula of the sigmoid colon consistent with chronic diverticulosis. There is no pelvic fluid. There is no pelvic lymphadenopathy or mass lesion. Normal visualized pelvic arteries. Normal abdominal wall. Normal osseous structures. CT/CT Chest, Abd, Pel w/Contrast IMPRESSION: Normal enhanced CT chest, abdomen T pelvis examination. Electronically Signed: Tai Bergeron MD at 10:35 EDT Tel , Service support ,
[2021-03-25 16:16] LABS: EGFR FINGERSTICK > 60.0000 mL/min (>60)
== END ==
PROVIDERS: PCP Family Medicine; Referring Provider Internal Medicine Medical Oncology; Visit Provider Internal Medicine Medical Oncology
DX: C44.99 Other specified malignant neoplasm of skin, unspecified (principal)
CPT/HCPCS: 71260; 74177; Q9967

== ENCOUNTER → 2022-04-19 | Outpatient (CLI) | payer OTHER, SELFPAY ==
--- NOTE | 2022-04-19 16:01 | CT_ITS ---
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 This CT exam was performed using one or more of the following dose reduction techniques: automated exposure control, adjustment of the mA and/or kV according to patient size, and/or use of iterative reconstruction technique. This report was created using [employer] report generation technology. CONTRAST: IV 100mL Isovue-300 RADIATION DOSE: CTDIvol = 12.71 mGy, DLP = 1321.36 mGy-cm COMPARISON: 8.4.21 FINDINGS: CHEST: LUNGS AND PLEURAL SPACES: Unremarkable. No mass. No consolidation or edema. No pleural effusion or thickening. No pneumothorax. HEART: Unremarkable. Heart size is normal. No pericardial effusion. No significant coronary artery calcifications. MEDIASTINUM: Unremarkable. No mediastinal or hilar adenopathy. Esophagus is unremarkable. No hiatal hernia. THYROID: Unremarkable. No thyroid lesions. ABDOMEN: LIVER: Unremarkable. Homogeneous. No focal mass. GALLBLADDER AND BILE DUCTS: Unremarkable. No calcified gallstones. No gallbladder distention or wall edema. No intra- or extrahepatic biliary ductal dilation. PANCREAS: Unremarkable. No focal cystic or solid mass. SPLEEN: Unremarkable. Normal size without focal cystic or solid mass. ADRENALS: Unremarkable. No nodules. KIDNEYS AND URETERS: Unremarkable. Normal renal size and position. No hydronephrosis. STOMACH AND BOWEL: There are multiple diverticuli of the colon. There is diverticulosis but no radiographic signs for diverticulitis. No stomach or bowel distention. PELVIS: APPENDIX: No evidence of acute appendicitis. BLADDER: Urinary bladder wall has wall thickening. This can be related to a partially contractile state. However, a cystitis is not excluded. Urinalysis should be performed in an effort to exclude cystitis. REPRODUCTIVE: There are prostatic calcifications. CHEST, ABDOMEN and PELVIS: INTRAPERITONEAL SPACE: Unremarkable. No ascites or other fluid collection. No free air. BONES/JOINTS: There are degenerative changes of the shoulders. Degenerative findings in the lumbar spine. No suspicious lytic or blastic abnormality. SOFT TISSUES: Unremarkable. No discrete abdominal or pelvic wall hernia. VASCULATURE: There are calcifications of the abdominal aorta. This is consistent for atherosclerotic disease. There is NO abdominal aortic aneurysm. Vascular workup can be obtained based on clinical correlation. No aortic dissection. No obvious central pulmonary embolism although this study was not performed with the pulmonary embolism protocol. LYMPH NODES: Unremarkable. No enlarged lymph nodes. CT/CT Chest, Abd, Pel w/Contrast IMPRESSION: 1. Urinary bladder wall has wall thickening. This can be related to a partially contractile state. However, a cystitis is not excluded. Urinalysis should be performed in an effort to exclude cystitis. 2. There are multiple diverticuli of the colon. There is diverticulosis but no radiographic signs for diverticulitis. Electronically Signed: Ulysses Beth MD at 18:17 EDT ,
[2022-04-19 16:30] LABS: CREATININE FINGERSTICK < 0.9 mg/dL (0.70-1.30); EGFR FINGERSTICK > 60.0000 mL/min (>60)
== END | disposition home or self-care (01) ==
PROVIDERS: PCP Family Medicine; Referring Provider Internal Medicine Medical Oncology; Visit Provider Internal Medicine Medical Oncology
DX: I70.0 Atherosclerosis of aorta (principal); M19.012 Primary osteoarthritis, left shoulder; M19.011 Primary osteoarthritis, right shoulder
CPT/HCPCS: 71260; 74177; Q9967

== ENCOUNTER 2024-06-12 08:12 | Day surgery (SDC) | payer OTHER, SELFPAY ==
[2024-06-12] VITALS (7 sets, daily range): BP systolic 80–151; BP diastolic 46–73; PULSE 16–71; RESP 16–20; TEMP 35.8–36.6; O2SAT 95–100; BMI 25.1
--- NOTE | 2024-06-12 | COLBX_PTH ---
PATHOLOGY RESULTS PATIENT: WALT FERRO LOC: EN U#:[id number] AGE/SX: 64/M ROOM: RE06/12/[address]: Dr. Walt Basurto MD : 1960 BED: DIS: 06/12/2024 SPEC #: [id number] RECD: 06/12/24 13:15 STATUS: SCOTT KING #: [id number] SHARLA: 06/12/24 00:[address]: Walt Basurto DEPT: SURGICAL PATHOLOGY RECD BY: Steven Mchugh ENTERED: 06/12/24 13:15 SP TYPE: COLON BX OTHR DR: Dr. Norma Dominguez MD Tissues: Sigmoid colon biopsy Procedures: Surgery Specimen Level IV HEADER OPERATION: Colonoscopy with biopsy PRE-OP DIAGNOSIS: Positive colorectal cancer screening using Cologuard test TISSUE SUBMITTED: Sigmoid polyp biopsy MICROSCOPIC DIAGNOSIS Sigmoid polyp, biopsy: Hyperplastic polyp. AM. 06/13/2024 MICROSCOPIC DESCRIPTION Slides are reviewed. GROSS DESCRIPTION Received in fixative is one container labeled with the patient's name and designated Sigmoid polyp biopsy. The specimen consists of one irregular fragment of light camara soft tissue that measures 0.2 x 0.2 x 0.1 cm. The specimen is totally submitted in one cassette. 06/12/2024 TC:5 CPT:01621
--- OUTSIDE RECORDS SUMMARY | 2024-06-12 08:34 | XMS RPT_ITS | CCD ---
Author Organization [facility] Inform ion Partnership [facility] Care Team Providers Care Investigative Assistant Name Role Phone Unavailable Primary Care Provider Unavailque Dominguez MD, Norma Primary Care Provider NORMA DOMINGUEZ Primary Care Unavailable Medications Current Medications Medication Drug Class(es) Dates Sig (Normalized) Sig (Original) acetaminophen 325 mg / HYDROcodone bitartrate 5 mg oral tablet (1 source) Opioid Agonist Start: 04-05-2019 End: 04-10-2019 take 1 tablet by mouth every four hours as needed for pain, then take 1 tablet by mouth as needed for pain HYDROcodone-acetami nophen (NORCO) 5-325 MG per tablet Indications: Soft tissue lesion of foot Take 1 tablet by mouth every 4 hours as needed for Pain for up to 5 days. Intended supply: 5 days. Take lowest dose possible to manage pain 30 tablet 0 04/05/2019 04/10/2019 Active ALPRAZolam 0.25 mg disintegrating oral tablet (1 source) Benzodiazepine Start: 04-05-2019 ALPRAZolam (NIRAVAM) dissolvable tablet 0.25 mg amLODIPine 5 mg oral tablet (3 sources) Dihydropyridine Calcium Channel Earl take 1 tablet by mouth once daily amLODIPine (NORVASC) 5 MG tablet Take 5 mg by mouth daily 0 Active calcium chloride 0.0014 meq/ml / potassium chloride 0.004 meq/ml / sodium chloride 0.103 meq/ml / sodium lactate 0.028 meq/ml injectable solution (1 source) Start: 04-05-2019 lactated ringers infusion 1 ml diphenhydrAMINE hydrochloride 50 mg/ml cartridge (1 source) Histamine-1 Receptor Antagonist Start: 04-05-2019 End: 04-05-2019 diphenhydrAMINE (BENADRYL) injection 12.5 mg 2 ml fentaNYL 0.05 mg/ml injection (2 sources) Opioid Agonist Start: 04-05-2019 fentaNYL (SUBLIMAZE) injection 25 mcg Start: 04-05-2019 fentaNYL (SUBL IMAZE) injection 50 mcg 1 ml hydrALAZINE hydrochloride 20 mg/ml injection (1 source) Arteriolar Vasodilator Start: 04-05-2019 hydrALAZINE (APRESOLINE) injection 5 mg 1 ml HYDROmorphone hydrochloride 1 mg/ml cartridge (2 sources) Opioid Agonist Start: 04-05-2019 HYDROmorphone (DILAUDID) injection 0.25 mg Start: 04-05-2019 HYDROmorphone (DILAUDID) injection 0.5 mg 4 ml labetalol hydrochloride 5 mg/ml cartridge (1 source) beta-Adrenergic Earl Start: 04-05-2019 labetalol (NORMODYNE;TRANDATE) injection 5 mg 10 ml lidocaine hydrochloride 10 mg/ml injection (1 source) Antiarrhythmic, Amide Local Anesthetic Start: 04-05-2019 End: 04-05-2019 lidocaine PF 1 % injection 1 mL lisinopril 20 mg oral tablet (3 sources) Angiotensin Converting Enzyme Inhibitor Start: 02-08-2019 take 2 tablets by mouth once daily lisinopril (PRINIVIL;ZESTRIL) 20 MG tablet Take 40 mg by mouth daily 0 02/08/2019 Active loratadine 10 mg oral capsule (3 sources) take 1 capsule by mouth once daily loratadine (CLARITIN) 10 MG capsule Take 10 mg by mouth daily 0 Active 1 ml meperidine hydrochloride 25 mg/ml cartridge (1 source) Opioid Agonist Start: 04-05-2019 meperidine (DEMEROL) injection 12.5 mg [place]-3 Acid Ethyl Esters (NURSING HOME) (3 sources) [place]-3 Fatty Ac ids (FISH OIL) 1200 MG CAPS Take by mouth daily 0 Active [place]-3 Fatty Ac ids (FISH OIL) 1200 MG CAPS Take by mouth daily 0 Active 2 ml ondansetron 2 mg/ml injection (1 source) Serotonin-3 Receptor Antagonist Start: 04-05-2019 End: 04-05-2019 ondansetron (ZOFRAN) injection 4 mg oxyCODONE (1 source) Opioid Agonist Start: 04-05-2019 End: 04-05-2019 oxyCODONE (ROXICODONE) immediate release tablet 5 mg 1 ml promethazine hydrochloride 25 mg/ml injection (1 source) Phenothiazine Start: 04-05-2019 End: 04-05-2019 promethazine (PHENERGAN) injection 6.25 mg 3 ml sodium chloride 9 mg/ml injection (2 sources) Start: 04-05-2019 sodium chloride flush 0.9 % injection 10 mL vitamin d 1000 unt oral tablet (3 sources) take 1 tablet by mouth once daily vitamin D (CHOLECALCIFEROL) 1000 UNIT TABS tablet Take 1,000 Units by mouth daily 0 Active take 1 tablet by mouth once bernadette y vitamin D (CHOLECALCIFEROL) 1000 UNIT TABS tablet Take 1,000 Units by mouth daily 0 Active Completed/Discontinued Medications Medication Drug Class(es) Dates Sig (Normalized) Sig (Original) acetaminophen 500 mg oral tablet (1 source) Start: 04-05-2019 End: 04-05-2019 acetaminophen (TYLENOL) tablet 1,000 mg Start: 04-05-2019 End: 04-05-2019 acetaminophen (TYLENOL) tabl et 1,000 mg celecoxib 400 mg oral capsule (1 source) Nonsteroidal Anti-inflammatory Drug Start: 04-05-2019 End: 04-05-2019 celecoxib (CELEBREX) capsule 400 mg Start: 04-05-2019 End: 04-05-2019 celecoxib (CELEBREX) capsule 400 mg famotidine 20 mg oral tablet (1 source) Histamine-2 Receptor Antagonist Start: 04-05-2019 End: 04-05-2019 famotidine (PEPCID) tablet 20 mg Start: 04-05-2019 End: 04-05-2019 famotidine (PEPCID) tablet 2 0 mg gabapentin 300 mg oral capsule (1 source) Anti-epileptic Agent Start: 04-05-2019 End: 04-05-2019 gabapentin (NEURONTIN) capsule 300 mg Start: 04-05-2019 End: 04-05-2019 gabapentin (NEURONTIN) capsu le 300 mg Problems Problem Classification Problem Date Documented Da te Episodic/Chronic Other connective tissue disease (1 source) Soft tissue lesion of foot region; Translations: [Soft tissue lesion of foot] Episodic Results Test Name Value Interpretation Reference Range Facil ity CNOVon 08-12-2023 CNOV Office Visit (UCWSTR ) WALT ZELAYA ([id number]) 1960 M Date Time Provider Department 08/12/23 8:30 AM JANAE REBOLLAR [facility] During your visit today, we recorded the following information about you: Temperature Pulse Respiration Blood pressure 98.2 degrees 70/minute 16/minute 148/88 Weight 76.2 kg Janae Rebollar PA 08/12/2023 8:44 AM Signed This note was created using Soundropriter. Subjective Walt Zelaya is a 63 year old male. HPI 63-year-old male presents for sinus congestion, sinus pressure, sinus pain x 12 days. Patient states he started getting nasal congestion 12 days ago with a cold. He states that the congestion is getting worse. He is now blowing his nose and it is yellow mucus. He has sinus pressure and sinus pain. No cough. No fevers. No sick contacts that he is aware of. Still able to eat and drink. Has been taking Claritin OTC without improvement. PAST MEDICAL HISTORY Diagnosis Date PMH - PAST MEDICAL HISTORY OF staph infection need fx nose x 2 PAST SURGICAL HISTORY Procedure Laterality Date PAST SURGICAL HISTORY OF knee ALLERGIES Patient has no known allergies. MEDICATIONS amLODIPine (NORVASC) 10 mg tablet Take 1 tablet by mouth every afternoon. lisinopril (ZESTRIL) 40 mg tablet Take 1 tablet by mouth every afternoon. SUDAFED 12 HOUR 120 MG TAB as directed RHINOCORT AQUA 32 MCG/ACTUATION NASAL SPRAY 2 [place](s) per nostril once a day amoxicillin-clavulanate potassium (AUGMENTIN) 875-125 mg per tablet Take 1 tablet by mouth two times a day for 5 days. FAMILY HISTORY Problem Relation Age of Onset other (htn [Other]) Maternal Grandmother Cancer Paternal Grandmother Social History Tobacco Use Smoking status: Never Smokeless tobacco: Former Substance Use Topics Alcohol use: Yes Comment: 2 x week Review of Systems Constitutional: Negative for chills and fever. HENT: Positive for congestion, sinus pressure and sinus pain. Negative for sore throat. Respiratory: Negative for cough and shortness of breath. Gastrointestinal: Negative for diarrhea and vomiting. Objective BP 148/88 Pulse 70 Temp 36.8 ?C (98.2 ?F) (Tympanic) Resp 16 Wt 76.2 kg (168 lb) SpO2 97% Physical Exam Vitals and nursing note reviewed. Constitutional: General: He is not in acute distress. Appearance: Normal appearance. He is not toxic-appearing. HENT: Right Ear: Tympanic membrane and ear canal normal. Left Ear: Tympanic membrane and ear canal normal. Nose: Mucosal edema and congestion present. Right Sinus: Maxillary sinus tenderness present. Left Sinus: Maxillary sinus tenderness present. Mouth/Throat: Mouth: Mucous membranes are moist. Eyes: Conjunctiva/sclera: Conjunctivae normal. Cardiovascular: Rate and Rhythm: Normal rate and regular rhythm. Pulmonary: Effort: Pulmonary effort is normal. Breath sounds: Normal breath sounds. Skin: General: Skin is warm and dry. Neurological: Mental Status: He is alert. Assessment and Plan ASSESSMENT/PLAN: 1. Bacterial sinusitis - ICD9: 473.9, 041.9, ICD10: J32.9, B96.89 - Will begin treatment with Augmentin 875 mg PO BID for 5 days - The patient should also be given OTC decongestants prn for the first 5-7 days of treatment. - Supportive care with plenty of fluids, rest, and analgesia prn. Diagnosis and treatment plan were discussed and questions were answered to the patient's satisfaction. Pt acknowledged understanding of concepts and follow up plan. Specific signs and symptoms that would indicate the need for higher level of care were discussed in detail warranting prompt ER evaluation. ALTON Eagle Allergies As of Date: 08/12/2023 (No Known Allergies) Date Reviewed: 08/12/2023 Reviewed by: Bel Stephenson LPN - Fully Assessed Reason for Visit: Sinus Problem [99] Cmt: Sinus, congestion and LE x 12 days Primary Visit Diagnosis:Bacterial sinusitis [J32.9, B96.89] Order(s):amoxicillin-cl avulanate potassium (AUGMENTIN) 875-125 mg per tabletTake 1 tablet by mouth two times a day for 5 days.Disp: 10 tabletRfl: 0 Prescriptions as of 08/12/2023 - amLODIPine (NORVASC) 10 mg tablet Take 1 tablet by mouth every afternoon. - lisinopril (ZESTRIL) 40 mg tablet Take 1 tablet by mouth every afternoon. - amoxicillin-clavulanate potassium (AUGMENTIN) 875-125 mg per tablet Take 1 tablet by mouth two times a day for 5 days. - SUDAFED 12 HOUR 120 MG TAB as directed - RHINOCORT AQUA 32 MCG/ACTUATION NASAL SPRAY 2 [place](s) per nostril once a day Problem List As Of Date 08/12/2023 Noted Resolved CHRONIC SINUSITIS NOS [J32.9] 05/31/2005 ALLERGIC RHINITIS NEC [J30.89] 05/31/2005 Prescriptions ordered this encounter Disp Refills Start End AMOXICILLIN 875 MG-POTASSIUM CLAVULA* 10 t* 0 08/12/2023 08/17/2023 Route: ORAL Sig: Take 1 tablet by mouth two times a day for 5 days. (more content not included)... Normal [facility] Surgical Pathologyon 019 Surgical Pathology [id number] [facility] PATHOLOGY AND LABORATORY MEDICINE [address] [place], [place] [id number] FINAL SURGICAL PATHOLOGY REPORT ___ NAME: WALT ZELAYA N [id number] : 1960 59 Y [place] [facility] NO.: [id number] LOCATION: 1SPO PROCEDURE 08/17/2019 DATE: SURGEON: ZULEIMA YOUNG M.D. RECEIVED 08/17/2019 DATE: ATTENDING: ZULEIMA YOUNG M.D. REPORT DATE: 08/20/2019 COPIES TO: ___ DIAGNOSIS: SKIN, RIGHT FLANK, EXCISIONAL BIOPSY - PILAR CYST WITH RUPTURE AND CHRONIC INFLAMMATION. NEGATIVE FOR MALIGNANCY. AR/AR Signature> JUAN DIEGO WATSON M.D. ___ CLINICAL INFORMATION: Not provided SPECIMEN: BIOPSY ___ GROSS DESCRIPTION: Right flank Received in formalin is one piece of ellipsoid skin with attached fatty tissue measuring 3.2 x 1.5 x 0.9 cm. The specimen is oriented with sutures, short for superior and long for lateral. The skin is yellow-camara, and contains one centrally located hyperpigmented, flat oval lesion measuring 0.8 x 0.6 cm, and situated at 1.0 cm from the lateral margin, 0.5 cm from the superior and inferior margins, and 1.5 cm from the medial margin. The specimen is inked as follows, blue for superior, green inferior, orange lateral, red medial, and deep black. Underlying the hyperpigmented area is a well-circumscribed, white firm lesion extending to a depth of 0.7 cm, well into the deep fat. The specimen is perpendicularly sectioned and submitted sequentially from lateral to medial into five cassettes. (bits ns, 5) MM0/KATHY Disclaimer: The following statement applies to all immunohistochemistry, in situ hybridization, molecular studies, and immunofluorescence testing. The use of one or more reagents in the above tests is regulated as an analyte specific reagent (ASR). These tests were developed and their performance characteristics determined by the clinical laboratories of [facility]. They have not been cleared by the US Food and Drug Administration (FDA). The FDA has determined that such clearance or approval is not necessary. All the above immunostains were performed on paraffin embedded tissue. Appropriate positive and negative controls (where applicable) were run in parallel with the patient's specimen; these controls showed expected staining pattern, with acceptable intensity of staining. Immunohistochemical assays have not been validated on decalcified tissues. Results should be interpreted with caution given the raised possibility of false negativity on decalcified specimens. Professional Performing Location: [address] [address] [place] [address]. DEPARTMENT OF PATHOLOGY AND LABORATORY MEDICINE [place], [place] [address] Normal [facility] APTTon 04-05-2019 aPTT Coag (Bld) [Time] 26.5 s Normal 20.0-30.5 [facility] Comment on above: Result Comment: NOTE : The therapeutic time for Heparin anticoagulation, based on Xa activity inhibition, is an APTT of 46-80 seconds. Performed By: #### A PTT, PT #### [address] [address] aPTT Coag (Bld) [Time] 26.5 s 20 - 30.5 s [place], [place] Comment on above: NOTE: The therapeuti c time for Heparin anticoagulation, based on Xa activity inhibition, is an APTT of 46-80 seconds. Test Performed by [id number] [place] [address] Op Noteon 04-05-2019 Op Note PATIENT: WALT ZELAYA ADMISSION DATE: 04/05/2019 SURGERY DATE: 04/05/2019 DATE OF : 1960 AGE: 59 ADMITTING PHYSICIAN: Abbey Uribe MD ATTENDING PHYSICIAN: Abbey Uribe MD DICTATING PHYSICIAN: Abbey Uribe MD OPERATIVE RECORD Procedure: RADICAL RESECTION WITH A SKIN AND SUBCUTANEOUS DOWN TO THE PLANTAR FASCIA OF 3 X 3 CM, APPLICATION OF HOME GOING VAC VIA. 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 Anesthesia: Co-Surgeon: Thanh Price M.D. Findings: A 59-year-old male who presented with a mass on his left foot that was causing significant problems. A biopsy done elsewhere revealed a porocarcinoma arising from the sweat glands. Because of the concern for recurrence and possible disease, it was elected to do a wide resection. This was done with 1 cm margin circumferentially to remove the entire mass. I went down through the subcutaneous fat to the fascia and a portion of the fascia was taken with the deep portion of the tumor. Grossly had movable tissue over all the boundaries. No adenopathy was noted on examination. It was tagged with a long stitch proximal and short stitch towards the radial side. A wound VAC was applied and the plan was given to Plastics next week for evaluation. Description of Procedure: The patient was brought to operative suite in stable condition under general anesthesia. He was placed in a supine position. The left foot was prepped and draped in orthopedic fashion. The tumor was outlined with approximately 1 cm margin circumferentially. The skin was incised down to the fat. Using a needle tip Bovie, we bovied circumferentially straight down to the fascia. I did take a small portion of fascia and a small portion of muscle that was attached to the fascia. This was a definite good margin there. Remaining margins seemed to be clear as I had movable fat over the entire region. The tumor was mostly in the skin, but did go on the subcutaneous tissue from the skin protuberance. No tumor was seen during the procedure. No edema or any concerning tissue was noted circumferentially. Copious irrigation was used. I did not use a tourniquet for the procedure. A small wound VAC via was applied with Plastic Surgery next week for consideration of coverage of this defect. The patient tolerated the procedure well. No apparent acute complications. [facility] Job ID: [id number] Abbey Uribe MD DOD:04/05/2019 12:00 P KAREN/jorge DOT:04/05/2019 02:06 P Job Number: [id number] Document Number: [id number] cc: Abbey Uribe MD [address] [place] [id number] Normal [facility] Prothrombin Timeon 9 INR Coag (PPP) [Relative time] 0.9 Normal 0.9-1.1 [facility] Comment on above: Result Comment: Viraj mmended Anticoagulant Therapy: SEE BELOW ----- INR of 2.0 - 3.0 : - Prophylaxis of Venous Thrombosis (high-risk surgery) - Treatment of Venous Thrombosis - Treatment of Pulmonary Embolism (Includes tissue heart valves, Acute Myocardial Infarction to prevent systemic embolism, Valvular Heart Disease, and Atrial Fibrillation) ----- INR of 2.5 - 3.5 : - Mechanical Prosthetic Valves (high risk) - If oral anticoagulant therapy is used to prevent Myocardial Infarction Performed By: #### A PTT, PT #### [facility] [address] [place] [address] PT Coag (PPP) [Time] 10.0 s Normal 9.0-12.0 [facility] Comment on above: Result Comment: . Performed By: #### A PTT, PT #### [address] [address] [place] [address] Protime-INRon 04-05-2019 INR Coag (PPP) [Relative time] 0.9 {INR} [place], [place] Comment on above: Recommended Anticoag ulant Therapy: SEE BELOW ----- INR of 2.0 - 3.0 : - Prophylaxis of Venous Thrombosis (high-risk surgery) - Treatment of Venous Thrombosis - Treatment of Pulmonary Embolism (Includes tissue heart valves, Acute Myocardial Infarction to prevent systemic embolism, Valvular Heart Disease, and Atrial Fibrillation) ----- INR of 2.5 - 3.5 : - Mechanical Prosthetic Valves (high risk) - If oral anticoagulant therapy is used to prevent Myocardial Infarction PT Coag (PPP) [Time] 10 s 9 - 12 s [place], [place] Comment on above: . Test Performed by [facility] [place], [place] [id number] [place] [address] Surgical Pathologyon 019 Surgical Pathology [id number] [facility] PATHOLOGY AND LABORATORY MEDICINE [address] [place] [id number] FINAL SURGICAL PATHOLOGY REPORT ___ NAME: WALT ZELAYA : 1960 59 Y M [place] NO.: [id number] LOCATION: PACO 1PAC 28 PROCEDURE 04/05/2019 DATE: SURGEON: ABBEY URIBE M.D. RECEIVED 04/05/2019 DATE: ATTENDING: ABBEY URIBE M.D. REPORT DATE: 04/06/2019 COPIES TO: ___ DIAGNOSIS: SKIN, LEFT FOOT, EXCISION - CONSISTENT WITH INFILTRATIVE LOW-GRADE POROCARCINOMA NEGATIVE MARGINS JAW/JAW Signature> PAN CURRAN M.D. ___ CLINICAL INFORMATION: Carcinoma SPECIMEN: SKIN, LARGE EXCISION ___ GROSS DESCRIPTION: Left foot porocarcinoma Received in formalin is an oval-shaped segment of skin and subcutaneous tissue measuring 3.5 x 3 cm and resected to a depth of up to 1.5 cm. Epithelial surface is wrinkled, camara, and contains a central, dome-shaped, raised lesion 2.5 cm in diameter that extends 0.8 cm above the base. The lesion is focally ulcerated. There is a short suture on the lateral side of the specimen and a long suture on the proximal side. The lateral half of the specimen is inked orange. The medial proximal portion is inked black. The medial distal portion is inked blue. Multiple telephone service representative sections are submitted in a total of six cassettes. (bits ss, 6) JCK/ONEL Disclaimer: The following statement applies to all immunohistochemistry, in situ hybridization, molecular studies, and immunofluorescence testing. The use of one or more reagents in the above tests is regulated as an analyte specific reagent (ASR). These tests were developed and their performance characteristics determined by the clinical laboratories of [facility]. They have not been cleared by the US Food and Drug Administration (FDA). The FDA has determined that such clearance or approval is not necessary. All the above immunostains were performed on paraffin embedded tissue. Appropriate positive and negative controls (where applicable) were run in parallel with the patient's specimen; these controls showed expected staining pattern, with acceptable intensity of staining. Immunohistochemical assays have not been validated on decalcified tissues. Results should be interpreted with caution given the raised possibility of false negativity on decalcified specimens. Professional Performing Location: [place] [address]. DEPARTMENT OF PATHOLOGY AND LABORATORY MEDICINE [place], [place] [address] Normal [facility] Vital Signs Date Time Vital Sign Value Performing Clinician Faci lity 04-05-2019 12:15-0400 BP Diastolic 97 mm[Hg] [place], [place] 04-05-2019 12:15-0400 BP Systolic 170 mm[Hg] [place] 04-05-2019 12:15-0400 Pulse (Heart Rate) 62 /min [place], [place] 04-05-2019 12:15-0400 Pulse Oximetry 100 % [place], [place] 04-05-2019 12:15-0400 Respiratory Rate 18 /min [place], [place] 04-05-2019 11:39-0400 Body Temperature 97.9 [degF] [place], [place] 04-05-2019 08:39-0400 BMI (Body Mass Index) 24.48 kg/m2 [place], [place] 04-05-2019 08:39-0400 Body weight 73.03 kg [place], [place] 04-05-2019 08:39-0400 Height 172.7 cm [place] 04-04-2019 09:28-0400 BMI (Body Mass Index) 24.54 kg/m2 Abbey Rodgers [facility], [place] 04-04-2019 09:28-0400 Body Temperature 98.1 [degF] [facility] [place] 04-04-2019 09:28-0400 Body weight 73.21 kg [facility] [place] 04-04-2019 09:28-0400 BP Diastolic 107 mm[Hg] [place] 04-04-2019 09:28-0400 BP Systolic 183 mm[Hg] [place] 04-04-2019 09:28-0400 Height 172.7 cm [facility] [place] 04-04-2019 09:28-0400 Pulse (Heart Rate) 83 /min [facility] [place] 04-04-2019 09:28-0400 Pulse Oximetry 99 % Abbey [facility] [place] 04-04-2019 09:28-0400 Respiratory Rate 18 /min Abbey [facility] [place] Encounters Encounter Date Encounter Type Care Provider Facility Start: 08-12-2023 End: 08-12-2023 ambulatory NORMA Rosamaria SOLARES Facility:[place] Start: 08-17-2019 End: 08-17-2019 Subsequent hospital visit by physician Zuleima Young MD Work Phone: [facility] Laboratory Start: 04-05-2019 End: 04-05-2019 Subsequent hospital visit by physician Abbey Uribe Work Phone: [facility] General Surgery Comment on above: Soft tissue lesion o f foot (Primary Dx) Start: 04-04-2019 End: 04-04-2019 Subsequent hospital visit by physician Abbey Uribe Work Phone: [facility] Pre-Admit Testing Comment on above: Arrived Procedures Date Procedure Procedure Detail Performing Clinician Start: 04-05-2019 OPERATIVE REPORT 3m Sca nning Start: 04-05-2019 Prothrombin time Belle R [place] Work Phone: Start: 04-05-2019 Thromboplastin time partial plasma/whole blood [facility] [place] Work Phone: Plan of Treatment Date Care Activity Detail Author Start: 04-22-2019 Influenza vaccination Flu vaccine (# 1) [place], [place] Start: 04-05-2019 Hospital Encounter 04/05/2019 Hospital Encounter General Surgery Abbey Uribe MD [address] [facility] [address] [place] [address] [phone] [facility] Start: 2011 Colon cancer screen colonoscopy Colon cancer screen colonoscopy [place], [place] Start: 2011 Shingles Vaccine (1 of 2) Shingles Vaccine (1 of 2) [place], [place] Start: 2001 Lipid screen Lipid screen [place], [place] Start: 1980 DTaP/Tdap/Td vaccine (1 - Tdap) DTaP/Tdap/Td vaccine (1 - Tdap) [place] Start: 1976 HIV screen HIV screen [place], [place] Start: 1972 DTaP/Tdap/Td vaccine (1 - Tdap) DTaP/Tdap/Td vaccine (1 - Tdap) [facility] Work Phone: Start: 1961 Creatinine monitoring Creatinine mon itoring [place], [place] Start: 1961 Hepatitis C screen Hepatitis C scree n [place], [place] Start: 1961 Potassium monitoring Potassium monit [place]ing [place] Incentive spirometry Incentive s pirometry Respiratory Care Routine Q1H PRN until discontinued starting 04/05/2019 [place], [place] Comment on above: Q1H PRN until discon tinued starting 04/05/2019 Initiate Oxygen Ther apy Protocol [place], [place] Comment on above: Daily until disconti nued starting 04/06/2019 Daily until disconti nued starting 04/05/2019 Phase I & II - meter ed glucose Phase I & II - metered glucose Point of Care Testing Routine As Needed until discontinued starting 04/05/2019 [place], [place] Comment on above: As Needed until disc ontinued starting 04/05/2019 End: 04-05-2019 Pulse Oximetry Spot Check Pulse Oximetry Spot Check Respiratory Care Routine One Time for 1 Occurrences starting 04/05/2019 until 04/05/2019 [place] Comment on above: One Time for 1 Occur rences starting 04/05/2019 until 04/05/2019 End: 08-17-2019 Surgical Pathology Surgical Pathology Lab Routine Once for 1 Occurrences starting 08/17/2019 until 08/17/2019 [facility] Work Phone: Comment on above: Once for 1 Occurrenc es starting 08/17/2019 until 08/17/2019 Surgical Pathology Surgical Path ology Lab Routine 08/17/2019 12:00 AM EST [facility] Work Phone: Payers Date Payer Category Payer Unknown [id number] 2019 Unknown [employer] PPO [facility] xxxxxxxxxxxx 2019-Present [phone] [address] [place] [address] xxxxxxxxxxxx [id number] Social History Date Type Detail Facility Start: 04-04-2019 End: 04-05-2019 Tobacco smoking status NHIS Former smoker [place], [place] History of tobacco use Cigarette Smoker [place] Start: 04-04-2019 End: 04-05-2019 Alcohol intake Yes [place] Start: 04-04-2019 Tobacco Comment 2 packs a week 20 yrs year quit in 2014 [place], [place] Start: 04-04-2019 Alcohol Comment 3 times a week 7-9 drinks [place] Sex Assigned At Not on file [place] Start: 04-05-2019 Alcohol intake Current drinke r of alcohol (finding) [facility] Work Phone: Start: 04-04-2019 Tobacco Comment 2 packs a week 20 yrs year quit in 2014 [facility] Work Phone: Progress note 08-12-2023 Note Date & Type Note Facility 08-12-2023 Note HNO ID: [id number] Author: Janae Rebollar PA Service: ? Author Type: Physician Designer Type: Progress Notes Filed: 08/12/2023 8:44 AM Note Text: This note was created using Soundropriter. Subjective Walt Zelaya is a 63 year old male. HPI 63-year-old male presents for sinus congestion, sinus pressure, sinus pain x 12 days. Patient states he started getting nasal congestion 12 days ago with a cold. He states that the congestion is getting worse. He is now blowing his nose and it is yellow mucus. He has sinus pressure and sinus pain. No cough. No fevers. No sick contacts that he is aware of. Still able to eat and drink. Has been taking Claritin OTC without improvement. PAST MEDICAL HISTORY Diagnosis Date PMH - PAST MEDICAL HISTORY OF staph infection need fx nose x 2 PAST SURGICAL HISTORY Procedure Laterality Date PAST SURGICAL HISTORY OF knee ALLERGIES Patient has no known allergies. MEDICATIONS amLODIPine (NORVASC) 10 mg tablet Take 1 tablet by mouth every afternoon. lisinopril (ZESTRIL) 40 mg tablet Take 1 tablet by mouth every afternoon. SUDAFED 12 HOUR 120 MG TAB as directed RHINOCORT AQUA 32 MCG/ACTUATION NASAL SPRAY 2 [place](s) per nostril once a day amoxicillin-clavulanate potassium (AUGMENTIN) 875-125 mg per tablet Take 1 tablet by mouth two times a day for 5 days. FAMILY HISTORY Problem Relation Age of Onset other (htn [Other]) Maternal Grandmother Cancer Paternal Grandmother Social History Tobacco Use Smoking status: Never Smokeless tobacco: Former Substance Use Topics Alcohol use: Yes Comment: 2 x week Review of Systems Constitutional: Negative for chills and fever. HENT: Positive for congestion, sinus pressure and sinus pain. Negative for sore throat. Respiratory: Negative for cough and shortness of breath. Gastrointestinal: Negative for diarrhea and vomiting. Objective BP 148/88 Pulse 70 Temp 36.8 ?C (98.2 ?F) (Tympanic) Resp 16 Wt 76.2 kg (168 lb) SpO2 97% Physical Exam Vitals and nursing note reviewed. Constitutional: General: He is not in acute distress. Appearance: Normal appearance. He is not toxic-appearing. HENT: Right Ear: Tympanic membrane and ear canal normal. Left Ear: Tympanic membrane and ear canal normal. Nose: Mucosal edema and congestion present. Right Sinus: Maxillary sinus tenderness present. Left Sinus: Maxillary sinus tenderness present. Mouth/Throat: Mouth: Mucous membranes are moist. Eyes: Conjunctiva/sclera: Conjunctivae normal. Cardiovascular: Rate and Rhythm: Normal rate and regular rhythm. Pulmonary: Effort: Pulmonary effort is normal. Breath sounds: Normal breath sounds. Skin: General: Skin is warm and dry. Neurological: Mental Status: He is alert. Assessment and Plan ASSESSMENT/PLAN: 1. Bacterial sinusitis - ICD9: 473.9, 041.9, ICD10: J32.9, B96.89 - Will begin treatment with Augmentin 875 mg PO BID for 5 days - The patient should also be given OTC decongestants prn for the first 5-7 days of treatment. - Supportive care with plenty of fluids, rest, and analgesia prn. Diagnosis and treatment plan were discussed and questions were answered to the patient's satisfaction. Pt acknowledged understanding of concepts and follow up plan. Specific signs and symptoms that would indicate the need for higher level of care were discussed in detail warranting prompt ER evaluation. [facility] Discharge Instructions * Instructions* Thanh Price MD - 04/05/2019 General Orthopedic Discharge Instructions The following instructions have been prepared to help you when you leave the hospital. These guidelines are for the post-surgery period. Activity: Ease into normal activity as tolerated. Weightbearing status: as tolerated on toes. Do not walk on your vac. Medications: see medication instructions. Please be sure to read and understand the information provided by your pharmacy. Ask your Pharmacist if any questions. Wound Care and Hygiene: -Wash hands before touching or changing dressings -Do Not touch incision -Leave vac on until you see your next doctor. Call Your Doctor for: -Excessive bleeding/swelling of incision -Fever with temperature above 101 F Anesthesia Precautions: -Do Not operate any vehicle (automobile, bicycle, motorcycle) or power tools for 24 hours -Do Not drink alcoholic beverages for 24 hours -As precaution to prevent post-operative nausea and vomiting, start your diet with liquids, then progress to light foods. If tolerated, resume normal diet. Additional Instructions: Ice to affected area. This will help with pain and swelling. Follow your vac instructions. If you have any issues or questions, call the office. Contact your surgeon's office (Dr. Uribe) if you have any problems or questions. Set up follow-up with Dr. Abdi in 1 week to establish care and discuss coverage options. documented in this encounter* Instructions* Zeynep Smith RN - 04/04/2019 PLEASE SHOWER WITH AN ANTIBACTERIAL SOAP SUCH DIAL Please bring your [facility] [email or web address] Surgical Information folder on the day of surgery. Please bring a photo ID and insurance information Do NOT take the following medications on the morning of surgery LISINOPRIL , VITAMINS TAKE the following medications the morning of your surgery AMLODIPINE You may take your prescription pain medications. You may take Tylenol (Acetaminophen) if needed forpain. No Motrin, Ibuprofen, or Advil 24 hours prior to surgery, or longer if instructed by your surgeon. No Aleve or Naprosyn 3 days prior to surgery, or longer if instructed by your surgeon. If you are on BLOOD THINNERS or ASPIRIN, STOP ANY ASPIRIN 5 DAYS PRIOR Additional instructions FOLLOW ANY FURTHER INSTRUCTIONS THAT DR. URIBE MAY HAVE GIVEN TO YOU You will receive a reminder call the day before surgery with your Same Day Surgery arrival time. If you have specific questions, please call your surgeon. documented in this encounter History of Present Illness * Keara Alexandre RN - 04/05/2019 9:14 AM EDT Discussed manual bp with dr yu * Keara Alexandre RN - 04/05/2019 9:[address] yu notified of bp, pt c/o anxiety and no lisinopril today per instruction prior to surgery. 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 Advance Directives and Living Will Power of Addiction Medicine Physician Latest Code Status on File Code Status Date Activated Date Inactivated Comments Full Code 04/05/2019 8:36 AM Latest Code Status on File Code Status Date Activated Date Inactivated Comments Full Code 04/05/2019 8:36 AM 04/05/2019 3:08 PM Summary Purpose Family History No Family History Records FoundNo Family History Records Found Additional Source Comments (unrecognized sect ion and content) No Status Records FoundNo Status Records Found INFORMATION SOURCE (unrecogn ized section and content) DATE CREATED AUTHOR 10/17/2019 [facility] DATE CREATED AUTHOR AUTHOR'S OZZIE RASCON 08/13/2023 [facility] FOR RECORDS PERTAINING TO PATIENTS WHO ARE OR HAVE BEEN ENROLLED IN A CHEMICAL DEPENDENCY/SUBSTANCEABUSE PROGRAM, SOME INFORMATION MAY BE OMITTED. This clinical summary was aggregated from multiple sources. Caution should be exercised in using it in the provision of clinical care. This summary normalizes information from multiple sources, and as a consequence, information in this document may materially change the coding, format and clinical context of patient data. In addition, data may be omitted in some cases. CLINICAL DECISIONS SHOULD BE BASED ON THE PRIMARY CLINICAL RECORDS. [employer] provides no warranty or guarantee of the accuracy or completeness of information in this document.
--- NOTE | 2024-06-12 08:57 | PCM.PRE.AN2 ---
ASA Classification* ASA Classification ASA Classification: 2 Assessment & Plan Anesthesia* Anesthesia Assessment Anesthesia Assessment: Discussed sedation and/or anesthesia options, risks, benefits, and alternatives with patient/parents/legal guardian/POA. Questions invited. The patient/parents/legal guardian/POA seems to understand and agrees to proceed with anesthesia plan. Reviewed the physical assessment, medical history, allergy history and patient home medications list prior to surgery/procedure/anesthetic and documented any changes. Performed airway and anesthesia risk assessments. Anesthesia Type Anesthesia Type: MAC History Source History Obtained from:: Patient and Chart Anesthesia Focused Assessment* Temperature: 98 F Pulse Rate: 71 Blood Pressure: 151/73 Respiratory Rate: 16 Pulse Ox: 100 Oxygen Delivery Method: Room Air Airway Assessment Mouth opens: >3 cm Mallampati Score: IV Teeth Condition: Caps/Crowns (Patient has a couple crowns. They are tight.) Neck Range of motion (ROM): Full ROM Focused Labs Anesthesia Preop lab: CBC WBC 6.0 K/mm3 (4.4-11.0) 04/26/24 13:50 RBC 4.61 M/mm3 (4.6-6.2) 04/26/24 13:50 Hgb 14.6 g/dL (13.0-16.5) 04/26/24 13:50 Hct 42.0 % (40-54) 04/26/24 13:50 Plt Count 248 K/mm3 (150-450) 04/26/24 13:50 CHEMISTRY Potassium 3.8 mmol/L (3.5-5.1) 04/26/24 13:50 Sodium 137 mmol/L (136-145) 04/26/24 13:50 BUN 11 mg/dL (7-18) 04/26/24 13:50 Creatinine 0.98 mg/dL (0.70-1.30) 04/26/24 13:50 Glucose 100 mg/dL (74-106) 04/26/24 13:50 COAG Pre-Assessment Diagnosis/Proposed Procedure Planned Operative Procedure(s): CSCOPE Anesthesia History 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 When Was Last Pacemaker Check QUESTION #4 FULL TEXT: You/Your Family Experience fever (hyperthermia) with Anesthesia Last Oral Intake Last Oral intake: Last Oral Intake NPO since Meds taken in AM with sips of water? Meds patient instructed to take am of surgery Any additional information?: Yes NPO since: 00:00 PONV PONV - neurology teacher: PONV - neurology teacher Female No 06/11/24 10:26 HX of Motion Sickness No 06/11/24 10:26 HX of N/V After Surgery No 06/11/24 10:26 Non-Smoker Yes 06/11/24 10:26 Duration of Surgery greater No 06/11/24 10:26 than 60 minutes Number of Risk Factors 1 06/11/24 10:26 PONV Score Low Risk 06/11/24 10:26 Height & Weight Height & Weight: Anesthesia: Height & Weight Height 5 ft 8 in 06/12/24 08:32 Weight: 75 kg 06/12/24 08:32 Body Mass Index (BMI) 25.1 06/12/24 08:32 Respiratory Assessment Respiratory Assessment - neurology teacher: Respiratory Tract Infection Hx - neurology teacher Hx Respiratory Tract Infection No 06/11/24 10:26 STOP Sleep Apnea STOP Sleep Apnea - neurology teacher: STOP Sleep Apnea - neurology teacher Hx Hypertension Yes: CONTROLLED WITH MEDS 06/11/24 10:26 Hx Sleep Apnea No 06/11/24 10:26 CPAP No 02/16/19 08:27 BIPAP Do you snore loudly (louder Yes 06/11/24 10:26 than talking or can be heard Do you often feel tired/ No 06/11/24 10:26 fatigued/ sleepy during daytime? Has anyone observed you stop No 06/11/24 10:26 breathing during sleep? STOP Results Positive 06/11/24 10:26 QUESTION #5 FULL TEXT : Do you snore loudly (louder than talking or can be heard through closed doors)? 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 Specify any problems Hx of Preganancy in last 3 N/A 06/11/24 10:26 Months Nurse Filling Out Transfusion DSCHRIBER 06/11/24 10:26 & Questions: Date: 06/11/24 06/11/24 10:26 Time: 1006/11/24 10:26 Patient unable to answer at this time (ie. confused, unrespo /Reproduction History /Reproductive History - neurology teacher: /Reproductive Hx- neurology teacher Hx Now No 06/11/24 10:26 Gestational Age (in weeks): EDC: Hx Hx Para Hx Section SAB No 06/11/24 10:26 PFSH Medical History Wears glasses Cancer Alcohol use Prostate disease Back pain History of diverticulitis Former smoker Positive colorectal cancer screening using Cologuard test Arthritis Staph aureus infection Hypertension Home Medications ?Medication ?Instructions ?Recorded ?Last Taken ?Type lisinopril 20 mg tablet 40 mg PO DAILY 02/12/19 06/12/24 History amlodipine 10 mg tablet 10 mg PO DAILY 10/17/19 06/12/24 History loratadine 10 mg tablet 10 mg PO DAILY PRN allergy symptoms 08/18/22 Unknown History Allergy/AdvReac Type Severity Reaction Status Date / Time No Known Allergies Allergy Verified 06/12/24 08:32 Surgical History Hx of arthroscopic knee surgery Hx of foot surgery History of excision of mass Social History Smoking Status: Former smoker alcohol intake: never substance use type: does not use Review of Systems (Anesthesia) ROS Narrative System reviewed and no additional complaints, except as documented.
--- NOTE | 2024-06-12 09:51 | HP.PCM_ITS ---
HPI - General General Date of Admission: 06/12/24 Date of Service: 06/12/24 Chief Complaint: Screening colonoscopy HPI Narrative SHELBIE FERRO, is a 64 M who presents for screening colonoscopy. He was found to be Cologuard positive. He has no prior history of colonoscopy. He does have a family history of colon polyps. He denies any GI symptoms or complaints. [facility] Medical History Wears glasses Cancer Alcohol use Prostate disease Back pain History of diverticulitis Former smoker Positive colorectal cancer screening using Cologuard test Arthritis Staph aureus infection Hypertension Home Medications ?Medication ?Instructions ?Recorded ?Last Taken ?Type lisinopril 20 mg tablet 40 mg PO DAILY 02/12/19 06/12/24 History amlodipine 10 mg tablet 10 mg PO DAILY 10/17/19 06/12/24 History loratadine 10 mg tablet 10 mg PO DAILY PRN allergy symptoms 08/18/22 Unknown His tory Allergy/AdvReac Type Severity Reaction Status Date / Time No Known Allergies Allergy Verified 06/12/24 08:32 Surgical History Hx of arthroscopic knee surgery Hx of foot surgery History of excision of mass Social History Smoking Status: Former smoker alcohol intake: never substance use type: does not use Vital Signs Vital Signs Vital Signs: 06/12/24 08:32 06/12/24 08:32 06/12/24 09:03 Temperature 98 F 98 F Temperature Source Temporal Pulse Rate 71 71 Respiratory Rate 16 16 Respiratory Pattern Normal Blood Pressure 151/73 H 151/73 H Blood Pressure Mean 99 Blood Pressure Source Monitor Blood Pressure Position Semi-Fowlers Blood Pressure Location Left Arm Pulse Ox 100 100 Oxygen Delivery Method Room Air Room Air Weight Weight: 165 lb 5.547 oz Body Mass Index (BMI) 25.1 Physical Exam Narrative He is alert and oriented x 3. He is in no acute distress. Head is normocephalic and atraumatic. Pupils are equal round and reactive to light. Abdomen is soft nontender nondistended. Assessment & Plan Assessment/Plan (1) Positive colorectal cancer screening using Cologuard test: PLAN: Plan The patient is a 64-year-old male with a recent positive Cologuard test. He has had no previous colonoscopy. Plans for colonoscopy. We discussed the details of the planned procedure including risks benefits and alternatives. He wishes to proceed. Procedure will begin momentarily. Charges/Coding Visit Charges Inpatient E&M: 91580 Init Hosp L1
--- NOTE | 2024-06-12 10:28 | SUR.PHASEI ---
SKIN COOL, DIAPHORETIC, ACCUCHECK 137, AROUSABLE BUT DISORIENTED. REPOSISTIONED.
--- NOTE | 2024-06-12 10:30 | PCM.POST.ANE ---
Anesthesia: Postop Eval I Current Vital Signs Temperature: 97.8 F Pulse Rate: 16 Blood Pressure: 80/60 Respiratory Rate: 16 Pulse Ox: 96 Oxygen Delivery Method: Room Air Assessment Airway patent: Yes Spontaneous unlabored respirations: Yes Mental status: Asleep nausea: No Vomiting: No Anesthesia Complication: No Fluid Hydration Crystalloid volume administer (ml): 40 Total IV fluid infused: 40 Progress Note Anesthesia document: Postop Eval 1 completed: Yes
--- NOTE | 2024-06-12 10:32 | OP.COLON_ITS ---
Patient Name: Walt Zelaya Procedure Date: 06/12/2024 9:33 AM Date of : 1960 Age: 64 Procedure: Colonoscopy Indications: Positive Cologuard test Providers: Walt Basurto MD Medicines: Monitored Anesthesia Care Patient Profile: Refer to note in patient chart for documentation of history and physical. Last Colonoscopy: none. The patient's first colonoscopy is today. Refer to note in patient chart for documentation of history and physical. Complications: No immediate complications. Estimated blood loss: Minimal. Procedure: Pre-Anesthesia Assessment: - Prior to the procedure, a History and Physical was performed, and patient medications and allergies were reviewed. The patient's tolerance of previous anesthesia was also reviewed. The risks and benefits of the procedure and the sedation options and risks were discussed with the patient. All questions were answered, and informed consent was obtained. Prior Anticoagulants: The patient has taken no anticoagulant or antiplatelet agents. ASA Grade Assessment: II - A patient with mild systemic disease. After reviewing the risks and benefits, the patient was deemed in satisfactory condition to undergo the procedure. After I obtained informed consent, the scope was passed under direct vision. Throughout the procedure, the patient's blood pressure, pulse, and oxygen saturations were monitored continuously. The colonoscope was introduced through the anus and advanced to the cecum, identified by appendiceal orifice and ileocecal valve. The ileocecal valve, appendiceal orifice, and rectum were photographed. The entire colon was well visualized. The colonoscopy was performed without difficulty. The patient tolerated the procedure well. The quality of the bowel preparation was adequate. Scope In: 10:02:11 AM Scope Withdrawal Time 0 hours 12 minutes 35 seconds Scope Out: 10:21:33 AM Total Procedure Duration Time 0 hours 19 minutes 22 seconds Findings: The perianal and digital rectal examinations were normal. Multiple small-mouthed diverticula were found in the sigmoid colon. A 3 mm polyp was found in the sigmoid colon. The polyp was semi-sessile. The polyp was removed with a cold biopsy forceps. Resection and retrieval were complete. Verification of patient identification for the specimen was done by the nurse using the patient's name, date and medical record number. The exam was otherwise without abnormality on direct and retroflexion views. Impression: - Diverticulosis in the sigmoid colon. - One 3 mm polyp in the sigmoid colon, removed with a cold biopsy forceps. Resected and retrieved. - The examination was otherwise normal on direct and retroflexion views. Recommendation: - Discharge patient to home (ambulatory). - High fiber diet indefinitely. - Await pathology results. - Repeat colonoscopy in 5 years for surveillance. - Return to my office PRN. - Continue present medications. Procedure Code(s): --- Professional --- 69818, Colonoscopy, flexible; with biopsy, single or multiple Diagnosis Code(s): --- Professional --- D12.5, Benign neoplasm of sigmoid colon K57.30, Diverticulosis of large intestine without perforation or abscess without bleeding R19.5, Other fecal abnormalities CPT copyright 2021 [employer]. All rights reserved. The codes documented in this report are preliminary and upon sail repairer review may be revised to meet current compliance requirements. Walt Basurto MD 06/12/2024 10:31:58 AM This report has been signed electronically. Number of Addenda: 0 Note Initiated On: 06/12/2024 9:33 AM
--- NOTE | 2024-06-12 10:32 | OP.CCLET_ITS ---
06/12/2024 Norma Dominguez [address] [place] [address] Re : Colonoscopy procedure for Walt Zelaya Dear Dr. Dominguez This procedure was performed on Wednesday, June 12, 2024. My impressions and recommendations are as follows: Impressions : - Diverticulosis in the sigmoid colon. - One 3 mm polyp in the sigmoid colon, removed with a cold biopsy forceps. Resected and retrieved. - The examination was otherwise normal on direct and retroflexion views. Recommendations : - Discharge patient to home (ambulatory). - High fiber diet indefinitely. - Await pathology results. - Repeat colonoscopy in 5 years for surveillance. - Return to my office PRN. - Continue present medications. My findings are described in the full procedure note, which is enclosed. If I can be of further assistance, please feel free to contact me at . Sincerely, Walt Basurto MD 06/12/2024 10:31:58 AM This report has been signed electronically.
[2024-06-12 10:47] LABS: Bedside Glucose 136 mg/dL (74-106)
--- NOTE | 2024-06-12 11:48 | PCM.POSTANE2 ---
Anesthesia Postop Eval I Sum Postop Eval Completion status Anesthesia document: Postop Eval 1 completed: Yes Anesthesia Postop Eval I Summary Anesthesia Postop Eval I Summary: Anesthesia Postop Eval I: Assessment Summary Airway patent Yes 06/12/24 10:30 [email or web address] Spontaneous unlabored Yes 06/12/24 10:30 [email or web address] respirations Mental status Asleep 06/12/24 10:30 [email or web address] nausea No 06/12/24 10:30 [email or web address] Vomiting No 06/12/24 10:30 [email or web address] Anesthesia Postop Eval I: Fluid Summary Crystalloid volume administer 40 06/12/24 10:30 [email or web address] (ml) Colloids volume administered ( ml) Blood Product volume administered (ml) Total IV fluid infused 40 06/12/24 10:30 [email or web address] Anesthesia Postop Eval I: Summary Notes Anesthesia Complication No 06/12/24 10:30 [email or web address] Anesthesia Complication Comment: Post-operative progress note Anesthesia: Postop Eval II Evaluation Mental status: Awake and Calm Pain Level: 0 nausea: No Vomiting: No Complications Anesthesia Complication: No
== END 2024-06-12 11:31 | disposition home or self-care (01) ==
LOC: EN 08:12 → AC 08:13
PROVIDERS: PCP Family Medicine; Referring Provider Family Medicine; Visit Provider Surgery
PROC: 0DJD8ZZ Inspection of Lower Intestinal Tract, Via Natural or Artificial Opening Endoscopic (ICD-10-PCS; CPT 45378; principal; 2024-06-12 09:10)
DX: Z12.11 Encounter for screening for malignant neoplasm of colon (principal); K63.5 Polyp of colon; K57.30 Diverticulosis of large intestine without perforation or abscess without bleeding; I10 Essential (primary) hypertension; Z87.19 Personal history of other diseases of the digestive system; Z83.719 Family history of colon polyps, unspecified; Z87.891 Personal history of nicotine dependence; Z79.899 Other long term (current) drug therapy
CPT/HCPCS: 45380; 82962; 88305; J2405